=== PATIENT | female | born 1945 | race Caucasian/White ===

== ENCOUNTER 2016-07-18 10:45 | Inpatient (IN) | payer MEDICARE ==
[2016-07-18] VITALS (13 sets, daily range): BP systolic 119–159; BP diastolic 57–123; PULSE 64–78; RESP 10–22; O2SAT 99–100
[~2016-07-18] VITALS: Ht 167.6 cm; Wt 77.6 kg
--- NOTE | 2016-07-18 10:39 | ED.REPORT ---
HPI-Overdose/Alcohol Toxicity Date of Service July 18, 2016 ED Provider: Saulo Guillen MD Patient is a 71 year old female with a history of sleep apnea, migraines and GERD who presents to the ED via EMS due to an overdose. Per the EMS, the patient 's family reported she was making suicidal comments last night and had started taking more of her sleeping medication. The patient had a prescription for a total of 68 Temazepam but EMS is unsure what she actually took. Per EMS, the patient's family watched her collapse about 20-50 minutes ago. Nursing Notes Stated Complaint: OVERDOSE Nursing Notes Reviewed: Yes (Effcon MXR not reconciled) Allergies: Coded Allergies: lisinopril (Verified Adverse Reaction, Severe, Extrapyramidal Symptoms, ) per pt sertraline (Verified Adverse Reaction, Severe, Diarrhea, 12/05/14) per pt Scheduled ([hytrin]) 20 MG PO DAILYWD Allopurinol (Allopurinol) 300 Mg Tablet 300 MG PO DAILY Amlodipine (Amlodipine) 5 Mg Tablet 5 MG PO DAILY Atorvastatin (Lipitor) 20 Mg Tablet 20 MG PO DAILY Fluoxetine (Prozac) 20 Mg Capsule 20 MG PO DAILY Glipizide (Glipizide) 5 Mg Tablet 5 MG PO BIDWM Lisinopril (Lisinopril) 20 Mg Tablet 20 MG PO DAILY Hold for systolic less than 110 Metformin ER (Metformin ER) 1,000 Mg Tablet 1,000 MG PO BIDWM Omeprazole (Omeprazole) 20 Mg Tablet.dr 20 MG PO BID Scheduled PRN Cyclobenzaprine (Cyclobenzaprine) 10 Mg Tablet 10 MG PO TID PRN PRN Spasm Hydrocodone-Acetaminophen 5-325 mg (Hydrocodone-Acetaminophen 5-325 mg) 1 Each Tablet 1 TABLET PO Q4H PRN PRN For Pain Methocarbamol (Methocarbamol) 500 Mg Tablet 750 MG PO QID PRN PRN For Spasm Mirtazapine (Mirtazapine) 15 Mg Tablet 15 MG PO HS PRN PRN Insomnia Temazepam (Temazepam) 30 Mg Cap 30 MG PO HS PRN PRN Insomnia Trazodone (Trazodone) 100 Mg Tablet 100 MG PO HS PRN PRN Insomnia General Time Seen by Provider: 10:45 Chief Complaint Drug overdose Modifying Factors: Intentional Hx Obtained From: EMS Arrived By: Ambulance Onset Occurred: Just prior to arrival Symptom Duration: Since onset Recent Healthcare: No recent hospitalization, Recent doctor visit Similar Sx Previous: No Past Medical History Past Medical History Notes: Last admitted November 2014 for abdominal pain Past Medical History From EMR: h/o Sleep apnea. h/o GERD. h/o migraines History of gout History of hiatal hernia History of chronic colitis Reports: Diabetes mellitus, Hyperlipidemia, Hypertension Past Surgical History L4-L5 fusion colonoscopy October 2014 revealed tubular adenoma, non-malignancy Family History Father - Enlarged heart. Brother - Brain aneurysm. Reports: Diabetes mellitus Smoking History Former Smoker Social History Alcohol Use: "Social" Drug Use: THC (UR indicates smokes marijuana daily) Ambulatory Status Independent Review of Systems Unable to Obtain ROS Intubated Physical Exam Initial Vital Signs Vital Signs (First) Date Time Temp Pulse Resp B/P Pulse Ox O2 Delivery O2 Flow Rate FiO2 07/18/16 10:49 64 22 138/123 100 Mechanical Ventilator 07/18/16 11:05 35.5 Initial VS: Reviewed Alertness: Positive: Sedated, Unresponsive no apparent toxidromes Respiratory / Chest: Atraumatic, No respiratory distress Cardiovascular: Heart rate NL, Regular rhythm, Heart sounds NL Heart Rate / Rhythm: Negative: Tachycardia Abdomen: Atraumatic, Soft, Non-tender Mental Status: Positive: Pharmacologically sedated occasional spot movement of all 4 extremities with no focal deficit Unable to Evaluate: Positive: Unresponsive Head / Eyes: Atraumatic, Normocephalic, PERRL, EOMI pupils were small but reactive bilaterally Skin: Atraumatic, Color NL, No rash, Warm, Dry Interpretation & Diagnostics Lab Results Interpretation Result Diagram: 07/18/16 1040 07/18/16 1040 Test 07/18/16 10:40 07/18/16 11:18 White Blood Count 8.7th/mm3 (3.8-10.1) Red Blood Count 4.42mil/mm3 (3.90-5.20) Hemoglobin 12.1g/dL (12.0-15.6) Hematocrit 37.2% (35.0-46.0) Mean Corpuscular Volume 84.2fL (81-100) Mean Corpuscular Hemoglobin 27.4pg (27.0-35.0) Mean Corpuscular Hemoglobin Concent 32.5% (32.0-37.0) Red Cell Distribution Width 14.6% (12.3-15.4) Platelet Count 334bil/L (150-400) Prothrombin Time 10.0sec (8.1-12.5) Prothromb Time International Ratio 0.94ratio Sodium Level 138mEq/L (134-144) Potassium Level 4.1mEq/L (3.5-5.2) Chloride Level 103mEq/L (97-108) Carbon Dioxide Level 22mmol/L (18-29) Blood Urea Nitrogen 22mg/dL (8-27) Creatinine 0.92mg/dL (0.57-1.00) Estimat Glomerular Filtration Rate 86mL/min (>59) Glucose Level 142mg/dL (60-99) Calcium Level 9.6mg/dL (8.5-10.1) Total Bilirubin 0.2mg/dL (0.0-1.2) Aspartate Amino Transf (AST/SGOT) 22U/L (0-50) Alanine Aminotransferase (ALT/SGPT) 16U/L (0-32) Alkaline Phosphatase 82U/L (25-165) Total Protein 6.8g/dL (6.4-8.4) Albumin 3.7g/dL (3.4-5.0) Salicylates Level < 3.0ug/mL (30-250) Acetaminophen Level < 15.0ug/mL Rx (10-25) Alcohols < 10mg/dL (0-10) Hold Urine Received (Received) Lab Results Interpretation: CBC normal CMP normal Tylenol negative Salicylates negative Alcohol negative UA positive for signs of infection Urine tox positive for benzos and THC ECG Interpretation ECG Interpretation: left anterior fasicular block, unchanged from previous EKG Q waves anterior, unchanged from 2014 Time: 11:04 Interpreted by: ED physician Normal ECG Interpretation: Normal rate (69), Normal sinus rhythm X-Ray Chest Interpretation Chest Xray Interpretation: IMPRESSION: ET tube with tip 3.6 cm the handy. Minimal right perihilar and left suprahilar pulmonary opacities most consistent with atelectasis, scarring or overlap of vascular structures. Dictated by: Lebron Stubbs M.D. on 07/18/2016 at 10:57 Approved by: Lebron Stubbs M.D. on 07/18/2016 at 10:59 View: Portable, 1 view Interpretation / Wet Read by: Interpret - Radiologist Re-Eval/Medical Decision Med Decision/Clinical Course This is a 71-year-old female brought with a complaint of intentional overdose, possibly on temazepam-although it is not entirely certain what the patient took. All history is from EMS-family and friends did not show up on the patient was in the emergency department. EMS reports that there were called to the scene for a witnessed overdose. That family and friends mention that she been talking about killing herself for the past several days, that she took pills this morning, and then she had a declining mental status and was witnessed to become decreased LOC at which point they called 911. On arrival of medics the patient was altered enough and had a decreased responsive they were concerned about airway detection and intubated her without difficulty on scene. This was after the patient failed to respond to Narcan, and had a normal Accu-Chek. The patient was normotensive, and had no tachycardia, and remained stable during her subsequent transfer. The patient's medicine bottles were collected-there is a recent bottle of 30 x15 mg temazepam that was just filled but is now empty raising concerns that this was the source of the overdose. There is a second bottle temazepam next empty, but is older and he might of been taken as directed-we simply do not know. There are number other medications most high risk of which would be amlodipine, but the patient had no bradycardia, no hypertension, and the pills not appear to be missing. The bottom line is we do not know for certain exactly what the patient is taken. She does not have a definitive toxidrome. His altered but still has a reasonable respiratory rate in fact is overbreathing the ventilator which would also be unusual. Her arterial blood gas in fact reveals mild hypercapnia suggestively inadequate ventilation rate is adequate, so her tidal volume was increased. Otherwise her blood work was normal. Chest x-rays negative. Urine tox positive only for benzos and THC. Tylenol, salicylates were normal. Patient started to wake up a little bit to move around, was not interactive and did require some mild low dose propofol sedation. The case was reviewed with poison control agrees with supportive management at this time. Although EMS reports and the patient overdosed and the events occurred in front of family and friends, at this point the patient being moved to the ICU no one has showed up at the Hospital provide additional information or information. CERTIFIED NURSE PRACTITIONER consultation is been requested. This is been discussed with the admitting hospitalist. Source of Hx: Old records, EMS Consultation #1: Referral / Consult Name: Brant Joseph MD Consulted With: Hospitalist Call Returned at: 11:25 Range Manager: Agrees with eval, Agrees with plan, Accepts admit Consultation #2: Call Returned at: 12:10 Range Manager: Agrees with eval, Agrees with plan Note: Consult with Poison Control who agrees to the plan and recommends testing her lactic acid. Differential Diagnosis: Positive: Overdose, intentional, Suicidal attempt Counseled Regarding: Diagnosis, Lab results, Need for admission Discharge & Departure Impression: Primary Impression: Overdose Encounter type: initial encounter Injury intent: intentional self-harm Qualified Code: T50.902A - Poisoning by unspecified drugs, medicaments and biological substances, intentional self-harm, initial encounter Additional Impressions: Suicide attempt Urinary tract infection Urinary tract infection type: acute cystitis Hematuria presence: without hematuria Qualified Code: N30.00 - Acute cystitis without hematuria Disposition: ADMITTED TO HOSPITAL Discharge Condition All VS Reviewed: Yes Condition: Stable Referrals: Ivon Gonsalves MD (PCP) Crit Care Except Billable Proc Time Spent: 30-74 minutes Services Performed: Patient management by me, Time spent at bedside, Reviewing test results, Reviewing imaging, Discussing patient care, Documentation in record Scribe Attestation Portions of this note were transcribed by Britney Dunn. I, Dr. Guillen personally performed the history, physical exam and medical decision-making; I reviewed and confirmed the accuracy of the information in the transcribed note. Signed by: Elieser Reid, 07/18/16 and 1225 copies to: Ivon Gonsalves MD, Matthew F MD July 18, 2016 10:39 Dotty Dunn July 18, 2016 10:58
[~2016-07-18 10:45] MED LIST: ALLO300T2 PO; AMLO5TAB2 PO; GLPZ5T PO; HYDR-4003 PO; METF-496 PO; OMEP20TA86 PO; PROZ20 PO; ROB500 PO; hytrin PO
[2016-07-18 10:53] LABS: Mean Corpuscular Hemoglobin 27.4 pg (27.0-35.0); Mean Corpuscular Volume 84.2 fL (81-100)
--- NOTE | 2016-07-18 11:01 | DRSVH ---
PROCEDURE: X-RAY CHEST ONE VIEW, PORTABLE ([id number]) INDICATIONS: check tube placement TECHNIQUE: One view of the chest was acquired. COMPARISON: None. FINDINGS: Surgical changes and devices: ET tube with tip 3.6 CM above the handy. Lungs and pleura: No pleural effusions or pneumothorax. Minimal left suprahilar and right perihilar pulmonary opacities. Oral Mediastinum: Mediastinal contours appear normal. Heart size is normal. Bones and chest wall: No suspicious bony lesions. Overlying soft tissues appear unremarkable. IMPRESSION: ET tube with tip 3.6 cm the handy. Minimal right perihilar and left suprahilar pulmonary opacities most consistent with atelectasis, scarring or overlap of vascular structures. Dictated by: Lebron Stubbs M.D. on 07/18/2016 at 10:57 Approved by: Lebron Stubbs M.D. on 07/18/2016 at 10:59
[2016-07-18 11:11] LABS: INR 0.94 ratio
--- NOTE | 2016-07-18 11:16 | ABG ---
DateTimeAnalyzed 11:08:35 -_ pH ____7.279 - 7.350 7.450 pCO2 ___51.1__ -mmHg 35.0 45.0 pO2 411 -mmHg 70.0 100 HCO3- ___23.9__ -mmol/L 22.0 26.0 ABE ___-2.8__ -mmol/L -2.0 2.0 tHb ___11.7__ -g/dL 12.0 18.0 O2Hb ___99.3__ -% 95.0 COHb ____1.4__ -% 1.5 MetHb ____0.2__ -% 0.4 1.5 FIO2 __100.0__ -% PEEP ____5.0__ -cmH2O Set_RR 16 -b/min Vt __440.0__ -L Drawn By btl - Date/Time Notified____ 11:16:00 -_ Spontaneous_RR 24 -b/min Oxygen Device 1 VENTILATOR - Notified By BTl - Notified Whom ___Dr. Wilmer - K+ ____4.0__ -mmol/L Tomi test N/A -
[2016-07-18] MEDS: Propofol Inj 1,000,000 MCG in IV Premix 1 EACH IV SCH ×2 (11:20→21:41)
[2016-07-18] MEDS ORDERED: AMLO5TAB2 PO (11:39)
[2016-07-18] MEDS ORDERED: TRAZ-118 PO (11:39)
[2016-07-18] MEDS ORDERED: MIRT15TA6 PO (11:39)
[2016-07-18] MEDS ORDERED: LISI-567 PO (11:39)
[2016-07-18] MEDS ORDERED: RES30 PO (11:39)
[2016-07-18] MEDS ORDERED: ATOR20TA PO (11:39)
[2016-07-18] MEDS ORDERED: CYCL10TA9 PO (11:39)
[2016-07-18 12:32] LABS: APPEARANCE,URINE CLOUDY (CLEAR,HAZY); COLOR,URINE YELLOW (YELLOW)
[2016-07-18 12:33] LABS: OCCULT BLOOD,URINE NEGATIVE (NEGATIVE); UROBILINOGEN,URINE NORMAL (NORMAL); YEAST,URINE MODERATE (NONE SEEN)
[2016-07-18] MEDS ORDERED: Ondansetron 2 mg/mL 2 mL Inj IVPUSH PRN ×2 (12:35→13:55)
[2016-07-18] MEDS ORDERED: Alum-Mag Hydrox-Simeth 30 mL Suspension PO PRN ×2 (12:35→13:55)
--- NOTE | 2016-07-18 12:38 | ABG ---
DateTimeAnalyzed 12:32:26 -_ pH ____7.487 - 7.350 7.450 pCO2 ___27.0__ -mmHg 35.0 45.0 pO2 ___79.8__ -mmHg 70.0 100 HCO3- ___20.4__ -mmol/L 22.0 26.0 ABE ___-2.6__ -mmol/L -2.0 2.0 tHb ___11.2__ -g/dL 12.0 18.0 O2Hb ___96.7__ -% 95.0 COHb ____1.8__ -% 1.5 MetHb ____0.0__ -% 0.4 1.5 sO2 ___98.4__ -% FIO2 ___21.0__ -% Drawn By btl - Date/Time Notified____ 12:38:00 -_ Notified By btl - Notified Whom ___Dr. Wilmer - K+ ____3.7__ -mmol/L tO2 ___15.2__ -Vol% Tomi test N/A -
[2016-07-18] MEDS ORDERED: 0.9% Sodium Chloride 1,000 ML IV ONE (12:40)
[2016-07-18] MEDS ORDERED: cefTRIAXone Inj 2,000 MG in Dextrose 5% Minibag Plus 50 ML IV ONE (13:10)
[2016-07-18] MEDS ORDERED: Polyethylene Glycol (PEG) 17 Gm Powder PO PRN (13:55)
[2016-07-18] MEDS ORDERED: Senna-Docusate 8.6-50 mg Tablet PO PRN (13:55)
--- NOTE | 2016-07-18 14:11 | NUR ---
Med Rec - pending brought a bag of medications (in bottles) to room. Some of the med bottles are empty, some are years ago, some are dispensed in recent months in 2017. said he had little knowledge of his medications and management. Fax request for med list from [facility] was sent. Addendum: 07/18/16 at 1422 by MONE RANGEL RN Returned med bottles to after med info was written on paper. took meds home. Addendum: 07/18/16 at 1833 by MONE RANGEL RN brought a list of her medications from home. Med list was dated May 13, 2016, [facility] [employer]. That's is the most recent med list to the best of 's knowledge. They were a few sedative medications (temazepam, trazodone, Mirtazapine) in the medication bag from home. Dr. Nelson aware of the above information.
[2016-07-18] MEDS: 0.9% Sodium Chloride 1,000 ML IV SCH ×2 (14:22→23:30)
--- NOTE | 2016-07-18 14:26 | DRSVH ---
PROCEDURE: X-RAY CHEST ONE VIEW, PORTABLE ([id number]) INDICATIONS: Post intubation to verify ETT placement TECHNIQUE: One view of the chest was acquired. COMPARISON: [facility], CR, XR CHEST 1VW (PORTABLE), 07/18/2016, 10:36. FINDINGS: Surgical changes and devices: Enteric tube with tip below the diaphragm. ET tube with tip 3 CM above the handy. Lungs and pleura: No pleural effusions or pneumothorax. Stable left suprahilar and right infrahilar pulmonary opacities. Mediastinum: Mediastinal contours appear normal. Heart size is normal. Bones and chest wall: No suspicious bony lesions. Overlying soft tissues appear unremarkable. IMPRESSION: New enteric tube with tip below the diaphragm. Stable ET tube. Remainder unchanged. Dictated by: Lebron Stubbs M.D. on 07/18/2016 at 14:24 Approved by: Lebron Stubbs M.D. on 07/18/2016 at 14:25
[2016-07-18] MEDS ORDERED: INSU100I13 SUBQ (15:09)
--- NOTE | 2016-07-18 15:26 | PCM.HPMED ---
Subjective Date of Service July 18, 2016 Primary Provider: Admitting Physician: Tomi Joseph MD Primary Care Physician: Ivon Gonsalves MD Attending Physician: Tomi Joseph MD Admit Status: From the Emergency Department, Full Admit, Critical Care Chief Complaint: Possible overdose. Patient is intubated in field for airway protection and altered mental status. History of Present Illness: This is a patient who was intubated in the field. She was seen by medics because of acute mental status changes. There was some inflammation suggesting a possible benzodiazepine overdose but this is not confirmed. The patient's notes that she has been suicidal recently and also states he did not speak with her this morning. Apparently she was up at breakfast and became acutely confused. Family members called 911. At that time the details are unclear she was already intubated while being transported to the emergency department. There she apparently was progression to some degree and was started on propofol. The patient was noted to have pinpoint pupils and was given 2 doses of Maalox on without effect. Brain imaging was not obtained. The patient's urine toxicity was positive for benzodiazepines and THC. She can provide no history as she is intubated. Her was interviewed and notes that he did not think she has used any marijuana for several months. He also notes that she does not drink. He notes that she is never made a clear-cut suicide attempt in the past. He also notes that he does not believe that she would want invasive procedures, mechanical ventilation, or CPR or defibrillation if she had an arrest. Review of Systems: Review systems is otherwise not obtainable due to her being intubated and her 's lack of specific details. Allergies Coded Allergies: lisinopril (Verified Adverse Reaction, Severe, Extrapyramidal Symptoms, ) per pt sertraline (Verified Adverse Reaction, Severe, Diarrhea, 12/05/14) per pt Home Medications ([hytrin]) 20 MG PO DAILYWD Allopurinol (Allopurinol) 300 Mg Tablet 300 MG PO DAILY Amlodipine (Amlodipine) 5 Mg Tablet 5 MG PO DAILY Atorvastatin (Lipitor) 20 Mg Tablet 20 MG PO DAILY Fluoxetine (Prozac) 20 Mg Capsule 20 MG PO DAILY Glipizide (Glipizide) 5 Mg Tablet 5 MG PO BIDWM Lisinopril (Lisinopril) 20 Mg Tablet 20 MG PO DAILY Hold for systolic less than 110 Metformin ER (Metformin ER) 1,000 Mg Tablet 1,000 MG PO BIDWM Omeprazole (Omeprazole) 20 Mg Tablet.dr 20 MG PO BID Scheduled PRN Cyclobenzaprine (Cyclobenzaprine) 10 Mg Tablet 10 MG PO TID PRN PRN Spasm Hydrocodone-Acetaminophen 5-325 mg (Hydrocodone-Acetaminophen 5-325 mg) 1 Each Tablet 1 TABLET PO Q4H PRN PRN For Pain Methocarbamol (Methocarbamol) 500 Mg Tablet 750 MG PO QID PRN PRN For Spasm Mirtazapine (Mirtazapine) 15 Mg Tablet 15 MG PO HS PRN PRN Insomnia Temazepam (Temazepam) 30 Mg Cap 30 MG PO HS PRN PRN Insomnia Trazodone (Trazodone) 100 Mg Tablet 100 MG PO HS PRN PRN Insomnia PMH Diabetes mellitus 2 GERD COSTA Migraine headaches Hyperlipidemia Essential hypertension Surgical History L4-L5 fusion Family History Positive family history of diabetes, one brother with a brain aneurysm. Social History Occupation: non- Hx Alcohol Use: No Hx Substance Use: Yes (takes medications to sleep) Hx Tobacco Use: Yes Smoking Status: Former Smoker Living Arrangement: with Family Exam Vital Signs Vital Sign - Last Date Time Temp Pulse Resp B/P Pulse Ox O2 Delivery O2 Flow Rate FiO2 07/18/16 14:37 36.4 68 10 144/68 100 Mechanical Ventilator 28 Exam Patient is intubated and unresponsive. Her propofol was weaned at the time of transfer up to the floor. She has pinpoint pupils and conjugate gaze. No response to noxious stimuli. She was not given paralytics. Normal skull. Normal nose and ears. Anicteric sclera, symmetric pupils, pinpoint Oropharynx is unremarkable, no facial droop. Neck is supple, normal thyroid. No adenopathy. Lungs are clear, normal effort rate. She is being mechanically ventilated. Heart is regular without murmur gallop or rub. Abdomen soft, nondistended or tender. Extremities are free of pedal edema. Good radial and pedal pulses. Skin is free of rash, lesions. No petechiae or ecchymosis. Joints are grossly normal. Cranial nerves are grossly normal. Otherwise. Motor strength flaccid in all extremities. Poor muscular tone. Lab and Diagnostics Result Diagram: 07/18/16 1040 5/28/17 1040 X-Rays, CTs and MRIs Chest x-ray is unremarkable, the ET tube is about 3 cm above the handy. Assessment & Plan 1. Acute encephalopathy, lung cardiology. POA. The patient will have her propofol weaned. She is currently being mechanically ventilated will follow her spontaneous respirations closely. We will obtain a stat head CT to rule out evidence of intracranial hemorrhage. 2. Possible overdose of benzodiazepines, unconfirmed. POA. We will support her airway and respirations of mechanical ventilation. If she clears after head CT with weaning and propofol will do a breathing trial and plan to extubate. 3 Is mellitus 2, POA. Correctional lispro with every 6 Accu-Cheks 4. Essential hypertension, POA. We will use labetalol when necessary systolic blood pressure 170 for now. 5. GI and DVT prophylaxis. Heparin will be withheld until after CT scan results are available. Will use mechanical compression devices. The patient is DO NOT RESUSCITATE, DO NOT INTUBATE after this extubation. No invasive procedures. She was admitted inpatient status with anticipated stay over 2 nights. VTE Mechanical Devices: Intermittant Pneumatic CD Resuscitation Status: DNR/DNI:Do Not Resuscitate/Intubate Time spent 60 min Tomi Joseph MD July 18, 2016 15:25
[2016-07-18] MEDS ORDERED: Dextrose 10% 250 ML IV PRN (15:30)
--- NOTE | 2016-07-18 15:51 | ABG ---
DateTimeAnalyzed 15:44:25 -_ pH ____7.368 - 7.350 7.450 pCO2 ___40.5__ -mmHg 35.0 45.0 pO2 ___84.0__ -mmHg 70.0 100 HCO3- ___23.3__ -mmol/L 22.0 26.0 ABE ___-1.8__ -mmol/L -2.0 2.0 tHb ___11.4__ -g/dL 12.0 18.0 O2Hb ___95.7__ -% 95.0 COHb ____1.6__ -% 1.5 MetHb ____0.1__ -% 0.4 1.5 sO2 ___97.3__ -% FIO2 ___28.0__ -% PRVC 440 - PEEP ____5.0__ -cmH2O Set_RR 10 -b/min Vt __461.0__ -L Drawn By jmw - Date/Time Notified____ 15:51:00 -_ Spontaneous_RR 11 -b/min Oxygen Device 1 VENTILATOR - Notified By JMW - Notified Whom DR NOEMI - K+ ____3.5__ -mmol/L tO2 ___15.4__ -Vol% Tomi test _Positive -
--- NOTE | 2016-07-18 16:05 | DRSVH ---
PROCEDURE: CT BRAIN WITHOUT CONTRAST ([id number]) INDICATIONS: confusion TECHNIQUE: Noncontrast 4.5 mm thick angled axial sections acquired from the foramen magnum to the vertex, with c oronal reformats. COMPARISON: None. FINDINGS: Image quality: Excellent. CSF spaces: Basal cisterns are patent. No extra-axial fluid collections. Ventricles are normal in size and shape. Brain: No midline shift. No intracranial masses or hemorrhage. Hernandez-white matter interface is norm al. Skull and face: Calvarium and visualized facial bones are intact, without suspicious lesions. Sinuses: Visualized sinuses and mastoids are clear. IMPRESSION: No CT evidence of acute intracranial pathology. Dictated by: Lebron Stubbs M.D. on 07/18/2016 at 16:01 Approved by: Lebron Stubbs M.D. on 07/18/2016 at 16:03
[2016-07-18] MEDS ORDERED: Chlorhexidine 0.12% 15 mL Oral Solution MT SCH (16:30)
[2016-07-18] MEDS ORDERED: Glucose 40% Oral Gel 15 Gm Tube PO PRN ×2 (16:35→16:45)
--- NOTE | 2016-07-18 16:49 | CONS ---
[address] [address] CONSULTATION REPORT PATIENT: ALETHEA GOOD : 1945 MR#: [id number] ADMIT: 07/18/2016 JOB ID: [id number] DATE OF SERVICE: 07/18/2016 REQUESTING CLINICIAN: Hospitalist Service. REASON FOR CONSULTATION: Acute respiratory failure in the setting of coma/encephalopathy. HISTORY OF ILLNESS: The patient is a chronically ill, 71-year-old woman with a history of anxiety, depression, who recently expressed suicidal ideation. She was last seen normal by family members approximately 10 p.m. yesterday evening. This morning, she was difficult to arouse with only slurred speech and mumbling. Paramedics were called. The patient was placed in the ambulance and at some point during transport to [facility] emergency department was intubated for reasons which are not entirely clear at this time. She was admitted from the emergency department to the critical care unit receiving propofol by continuous infusion. I was asked to become involved in her care upon her arrival in critical care. The patient's is at her bedside. He reports that she has been "under a lot of stress lately." Apparently, there is quite a bit of discord and conflict within the family involving substance abuse. The patient went for dinner with some family members late yesterday evening and when returned home appeared anxious and agitated. The says that she has access to sleeping pills and has been sleeping very poorly for the last several days and may have taken more than the prescribed amount. Upon arrival at the [facility] emergency department, she was treated with several doses of Naloxone without any improvement in her alertness. Urine drug screen positive for benzodiazepines and THC. Alcohol, acetaminophen, and salicylates undetectable. OUTPATIENT MEDICATIONS: Include: 1. Metformin 1000 mg p.o. b.i.d. 2. Allopurinol 300 mg daily. 3. Amlodipine 5 mg daily. 4. Atorvastatin 20 mg at bedtime. 5. Fluoxetine 20 mg daily. 6. Glipizide 5 mg b.i.d. 7. Insulin glargine 30 units subcu q.a.m. 8. Lisinopril 20 mg daily. 9. Methocarbamol 500 mg q.i.d. p.r.n. 10. Mirtazapine 15 mg at bedtime. 11. Omeprazole 20 mg b.i.d. 12. Temazepam 30 mg at bedtime. 13. Trazodone 100 mg p.r.n. insomnia. DRUG ALLERGIES: 1. LISINOPRIL. 2. SERTRALINE. SOCIAL HISTORY: She is , retired. She does not smoke marijuana regularly but has done so in the past. She reportedly does not use street drugs. She is an infrequent alcohol user. FAMILY HISTORY: Father, enlarged heart. Brother, brain aneurysm. REVIEW OF SYSTEMS: Unable to obtain as patient is intubated and unresponsive. PHYSICAL EXAMINATION: This is a pale, obese, elderly woman, who appears appropriate for age. She is unresponsive to loud voice and noxious stimuli with sternal rub. She is orotracheally intubated. Blood pressure is 150/70, heart rate is 68 and regular, respirations are 14 over ventilator rate of 14, and her O2 saturation is 100%. She is and has been afebrile with a current temperature of 36.4. HEENT exam: Gaze appears conjugate. Conjunctivae free of injection or hemorrhage. Pupils are equal at 2 mm. She has reptilian stare with head turning. No oculocephalic reflex noted. Sclerae anicteric. Visible oropharynx is moist without ulcerations or exudate. The trachea is midline. Neck is free of adenopathy, mass or crepitus. Thyroid is not palpable. Chest shows symmetric expansion on auscultation. He has good air movement in all crowder without wheeze, rale or rhonchi. Cardiac exam: Regular rhythm. No murmur, gallop, rub. Abdomen is soft and nontender. Bowel tones are absent. There is no appreciable organomegaly. Extremities: Are warm. She has 1+ pulse, both wrists. Trace dorsalis pedis bilaterally. Trace edema both ankles. She has an antecubital peripheral line in her right AC. Neurologic: Generally decreased tone throughout. No response to voice or noxious stimuli. No tremor. No clonus. Hyporeflexic throughout. DATABASE: Per the electronic medical record, chemistry showed sodium 138, potassium 4.1, chloride is 103, total CO2 is 22. BUN is 22, creatinine 0.9. Random glucose 142. Total calcium 9.6. CBC shows a hemoglobin of 12.2, hematocrit 37, WBC 8.7, and 334,000 platelets. PT/INR is normal at 10/0.9. Urine was cloudy with moderate leukocyte esterase, greater than 50 WBC and visible bacteria. Initial chest x-ray shows an endotracheal tube tip which lies approximately 3.5 cm above the hadny. She has patchy airspace disease in the right paratracheal region. IMPRESSION: 1. Acute respiratory failure. The indication for intubation appears to have been altered mental status to the degree that people were concerned about her ability to protect her airway. Right now she does have adequate spontaneous respiration on a pressure support spontaneous mode. She is already exhibiting some signs of awakening with purposeful movements of both upper extremities. Noncontrast head CT has been ordered and I think once this is completed hopefully she can remain on spontaneous ventilation and be extubated later today or early tomorrow. There may have been slight aspiration given the minimal patchy airspace disease but her oxygenation is fine on a relatively minimal FiO2 and I am not particularly concerned about a true pneumonia at this point. Endotracheal aspirate can be submitted for culture and antibiotics directed at any organisms grown. Can be added later based on how she evolves. 2. Urinary tract infection. Empiric antibiotics already prescribed by her admitting team. 3. Diabetes. Random glucose currently adequate. Hemoglobin A1c can be checked and her glucose managed with basal and sliding scale insulin until she is extubated and taking a diet. 4. ICU prophylaxis. She can receive subcutaneous unfractionated heparin and GI protection with either H2 paulette or proton pump inhibitor. 5. Coma. Suggests that this is a toxic encephalopathy most likely. Because of the bilateral pinpoint pupils I think we also need to exclude a pontine hemorrhage. If the noncontrast head CT is unremarkable and she remains comatose, an MRI should be obtained sometime tomorrow. RECOMMEND: 1. Spontaneous breathing trial off sedation once patient returns to critical care following noncontrast head CT. 2. Consider MR brain stem imaging if she remains comatose tomorrow and CT is nondiagnostic. 3. Routine ICU prophylaxis. 4. Diabetes management per primary team with basal and sliding scale insulin. 5. Psychiatry/mental health screening and referral prior to discharge given the likelihood that this admission may represent a suicide attempt. Thank for requesting pulmonary critical care consultation. We will continue to follow with you while she remains critically ill.
[2016-07-18] MEDS ORDERED: Insulin LISPRO 300 Unit/3 mL Inj SUBQ SCH (17:30)
[2016-07-18] MEDS: Insulin Human REGular 300 Unit/3 mL Inj SUBQ SCH ×2 (17:30→22:00)
--- NOTE | 2016-07-18 17:42 | NUR ---
P: Alteration in mental status. I: Ct of head done and was essentially negative. Pt opens her eyes slightly and is restless but doesn't follow commands. Placed on PST and was apneic so placed back on PRVC. Propofol off per Dr. Nelson which has been at the bedside to assess pt's neuro and respiratory status. NS 125cc/hr. 2 peripheral antecubital sites. OGT LCS and draining minimal green fluid. Moore patent and draining light fransisca urine. Turned Q 2 hours. here at bedside and talked with and about pt's condition and plan of care. Medication rec is pending results back from pharmacy. E: Stable S: Restraints on for pt safety. Frequent rounding. Addendum: 07/18/16 at 1835 by MONE RANGEL RN Lisinopril allergy? Pt. is allergic to Lisinopril according to 2015 [facility] record. Somehow, she is on Lisinopril according to 2017 [facility] list.
[2016-07-18] MEDS: Heparin 5,000 Unit/mL Inj SUBQ SCH ×2 (17:57→23:33)
[2016-07-18] MEDS: Chlorhexidine 0.12% 15 mL Oral Solution MT SCH ×3 (17:57→23:31)
[2016-07-18] MEDS ORDERED: MELA3TAB46 PO (18:19)
[2016-07-18] MEDS ORDERED: MESA1.2T2 PO (18:23)
[2016-07-18] MEDS ORDERED: ALBU8.5H2 INHALATION (18:23)
[2016-07-18] MEDS ORDERED: Insulin GLARgine 100 Unit/mL Syringe SUBQ SCH (20:30)
[2016-07-18] MEDS: Famotidine Inj 20 MG in IV Premix 1 EACH IV SCH (20:36)
[2016-07-18] MEDS: Insulin GLARgine 100 Unit/mL Syringe SUBQ SCH (20:38)
[2016-07-19] VITALS (13 sets, daily range): BP systolic 129–168; BP diastolic 53–76; PULSE 68–84; RESP 11–29; O2SAT 97–100
[2016-07-19] MEDS: Propofol Inj 1,000,000 MCG in IV Premix 1 EACH IV SCH ×2 (03:35→23:07)
[2016-07-19] MEDS: Chlorhexidine 0.12% 15 mL Oral Solution MT SCH ×5 (04:03→21:03)
--- NOTE | 2016-07-19 05:25 | NUR ---
P) LOC Pt. does not open eyes or seem to track, does pull against restraints but does not follow any commands, Phlegm suctioned from ET tube was initially clear to white, has become more yellow with tiny brown spots. Breath sounds slightly coarse but no crackles or rales note, seldom over-breaths vent. Skin protocol initiated. I) Meds per 's order, turning q2h and floating heels. E) Currently resting quietly with eyes closed.
--- NOTE | 2016-07-19 06:02 | ABG ---
DateTimeAnalyzed 05:56:00 -_ pH ____7.357 - 7.350 7.450 pCO2 ___40.4__ -mmHg 35.0 45.0 pO2 ___85.9__ -mmHg 69.0 116 HCO3- ___22.1__ -mmol/L 22.0 26.0 ABE ___-2.6__ -mmol/L -2.0 2.0 tHb ___10.7__ -g/dL O2Hb ___94.8__ -% COHb ____0.9__ -% MetHb ____1.3__ -% sO2 ___96.9__ -% FIO2 ___28.0__ -% PRVC 10 - PEEP ____5.0__ -cmH2O Vt __440.0__ -L Drawn By blf - Date/Time Notified____ 06:01:00 -_ Spontaneous_RR ___10.0__ -b/min Oxygen Device 1 VENTILATOR - Notified By blf - Notified Whom Nanda Samir RN -__ B 759 -mmHg tO2 ___14.4__ -Vol% Tomi test _Positive -
[2016-07-19 06:52] LABS: BASOPHILS % (AUTO) 0.4 % (0-3); EOSINOPHILS % (AUTO) 2.2 % (0-5); MONOCYTES % (AUTO) 9.1 % (4-12); Mean Corpuscular Hemoglobin 27.4 pg (27.0-35.0); Mean Corpuscular Volume 84.6 fL (81-100); NEUTROPHILS % (AUTO) 71.4 % (40-74); Platelet Count 258 bil/L (150-400)
[2016-07-19 07:00] LABS: Magnesium 1.4 mg/dL (1.6-2.6); Phosphorus 3.9 mg/dL (2.5-4.9)
[2016-07-19] MEDS: Potassium Chloride 20 mEq/15 mL 15mL Oral Soln PO SCH ×2 (07:45→14:17)
[2016-07-19] MEDS: Insulin Human REGular 300 Unit/3 mL Inj SUBQ SCH ×4 (08:00→21:29)
--- NOTE | 2016-07-19 08:36 | PROG NOTE ---
[address] [address] PROGRESS NOTE PATIENT: ALETHEA GOOD : 1945 MR#: [id number] ADMIT: 07/18/2016 JOB ID: [id number] DATE: 07/19/2016 PROBLEM: Apparent intentional overdose, probably temazepam. SUBJECTIVE: None. OBJECTIVE: Temperature 36.8, pulse 68-78, respiratory rate at 10-11 with ventilator set at 10, blood pressure 137/65, O2 sat on FiO2 of 20%, PEEP of 5 is 100%. I and O shows 2.2 L in, 0.9 L out. General appearance: Sedated on ventilator. Currently on a propofol drip so only at 3 mics per kg per hour. Pupils pinpoint. Chest is clear with good breath sounds bilaterally. Heart regular rhythm. Heart tones normal. Abdomen is soft. Bowel tones present. Extremities no pretibial edema. Skin seems intact. LABORATORY DATA: Shows a white cell count of 10,700 with a normal differential. Hemoglobin stable at 11.2. Platelet count 258,000, down from 334,000 yesterday. Sodium 140, potassium 3.6, chloride 107. CO2 is 21. BUN 13, creatinine 0.6. Glucose 110. Lactic acid yesterday afternoon was 1.9. Calcium 8.6 with albumin of 3.1. Phosphorus 3.9, magnesium 1.4 and I believe receiving a magnesium rider as per protocol. Total bilirubin, transaminase, and alkaline phosphatase all normal. Chest x-ray reported to show tubes in good position. There is a left suprahilar and a right infrahilar pulmonary opacity. ASSESSMENT: Presumed temazepam overdose. Apparently was somewhat agitated yesterday. She was initially taken off propofol and placed on a pressure support trial, but she was apneic. Apparently replaced on propofol for agitation though unclear as to the degree or what exactly was going on at that time. Seems fairly sedated to me. I think we will retry taking her off propofol, may be adding fentanyl if he gets somewhat agitated due to the placement of the endotracheal tube. Will try to get her breathing spontaneously and hopefully extubated. Unclear exactly how much temazepam she took although it was apparently a goodly amount. May take us a few days for the medication to wear off. In the meantime, will start tube feeding. Replace electrolytes as needed. Potassium a little bit on the low side and will replace. Magnesium is low. PLAN: 1. Start Jevity 1.5 enteral tube feeding. 2. Consider discontinuing propofol utilizing fentanyl for intolerance of the tube and feeling our way around sedation. 3. Magnesium replacement. 4. Discontinue propofol. TIME SPENT: So far in critical care 40 minutes.
[2016-07-19] MEDS: Heparin 5,000 Unit/mL Inj SUBQ SCH ×2 (09:24→17:21)
[2016-07-19] MEDS: Famotidine Inj 20 MG in IV Premix 1 EACH IV SCH ×2 (09:24→21:06)
[2016-07-19] MEDS: cefTRIAXone Inj 1,000 MG in Dextrose 5% Minibag Plus 50 ML IV SCH (09:24)
[2016-07-19] MEDS: 0.9% Sodium Chloride 1,000 ML IV SCH ×3 (09:25→23:21)
--- NOTE | 2016-07-19 10:53 | PCM.PNMED ---
Subjective Date of Service July 19, 2016 Subjective Patient remains intubated and sedated with no discernible response to external stimuli, per nursing reports she does occasionally pull on restraints. Eyes remain pinpoint and do not track. Patient appears stable on current Vent and sedation protocol. Comprehensive ROS could not be obtained due to patient sedation. Exam Vital Signs Vital Sign - Last Date Time Temp Pulse Resp B/P Pulse Ox O2 Delivery O2 Flow Rate FiO2 07/19/16 08:07 69 141/61 100 28 07/19/16 04:00 36.8 11 Mechanical Ventilator Intake and Output 07/18/16 07/18/16 07/19/16 Cumulative From/Thru 15:00 23:00 07:00 07/18/16 10:49 - 07/19/16 06:15 Intake Total 1000 ml 1249 ml 1799 ml 4048 ml Output Total 950 ml 1175 ml 2125 ml Balance 1000 ml 299 ml 624 ml 1923 ml Intake Oral 1000 ml 1000 ml IV Total 1249 ml 1799 ml 3048 ml Output Urine Total 950 ml 1075 ml 2025 ml Gastric Drainage Total 100 ml 100 ml Exam Gen: Patient intubated and sedated Neck: Supple, non tender, no JVD HEENT: no scleral icterus, no conjunctival pallor, Pinpoint pupils BL, ET tube in place and appears patent CV: RRR, no murmurs rubs or gallops Resp: Lungs CTA BL, no wheezing rales or rhonchi, Ventilator breath sounds Abd: Soft, non tender, no organomegaly, +BS 4Q Extr: No cyanosis clubbing or edema Neuro: Cannot asses as patient is non responsive to external stimuli IVs and Medications IV Fluids NS @ 125 ml/hr 50 ml infused with IV meds Medications Reviewed: Medications were reviewed in detail Lab and Diagnostics Item Value Date Time Red Blood Count 4.09 mil/mm3 07/19/16629 Mean Corpuscular Volume 84.6 fL 07/19/16629 Mean Corpuscular Hemoglobin 27.4 pg 07/19/16629 Mean Corpuscular Hemoglobin Concent 32.4 % 07/19/16629 Red Cell Distribution Width 14.4 % 07/19/16629 Neutrophils (%) (Auto) 71.4 % 07/19/16629 Lymphocytes (%) (Auto) 16.7 % 07/19/16629 Monocytes (%) (Auto) 9.1 % 07/19/16629 Eosinophils (%) (Auto) 2.2 % 07/19/16629 Basophils (%) (Auto) 0.4 % 07/19/16629 Estimat Glomerular Filtration Rate 122 mL/min 07/19/16629 Calcium Level 8.6 mg/dL 07/19/16629 Magnesium Level 1.4 mg/dL L 07/19/16629 Phosphorus Level 3.9 mg/dL 07/19/16629 Total Bilirubin 0.2 mg/dL 07/19/16629 Aspartate Amino Transf (AST/SGOT) 17 U/L 07/19/16629 Alanine Aminotransferase (ALT/SGPT) 11 U/L 07/19/16629 Alkaline Phosphatase 76 U/L 07/19/16629 Total Protein 6.0 g/dL L 07/19/16629 Albumin 3.1 g/dL L 07/19/16629 Prealbumin 21 mg/dL 07/19/16629 Result Diagram: 07/19/1662907/19/16629 X-Rays, CTs and MRIs X-RAY CHEST ONE VIEW, PORTABLE IMPRESSION: New enteric tube with tip below the diaphragm. Stable ET tube. Remainder unchanged. Dictated by: Lebron Stubbs M.D. on 07/18/2016 at 14:24 Approved by: Lebron Stubbs M.D. on 07/18/2016 at 14:25 CT BRAIN WITHOUT CONTRAST IMPRESSION: No CT evidence of acute intracranial pathology. Dictated by: Lebron Stubbs M.D. on 07/18/2016 at 16:01 Approved by: Lebron Stubbs M.D. on 07/18/2016 at 16:03 . Additional Diagnostics pH ____7.357 - 7.350 7.450 pCO2 ___40.4__ -mmHg 35.0 45.0 pO2 ___85.9__ -mmHg 69.0 116 HCO3- ___22.1__ -mmol/L 22.0 26.0 ABE ___-2.6__ -mmol/L -2.0 2.0 . Assessment & Plan Herlinda Cassidy is a 71 year old woman with a PMH of depression with recent expression of suicidal ideation and significantly increased stress in her life recently. Found non-responsive next to several empty pill bottles with likely Benzodiazepine overdose, those exact etiology of AMS uncertain at this point as patient is intubated and sedated and her is a poor historian. 1. Acute encephalopathy, uncertain etiology. POA. Acute. Active -The patient will have her propofol weaned. -She is currently being mechanically ventilated will follow her spontaneous respirations closely. -Head CT negative -Patient found with several empty pill bottles -Tube feeds initiated while patient is intubated 2. Possible overdose of benzodiazepines, unconfirmed. POA. acute. Active -We will support her airway and respirations of mechanical ventilation. -Will withhold Flumazenil due to concern for acute withdrawal and seizure potential -Plan to wean propofol and do a breathing trial with plan to extubate. -Will add back Benzo therapy once patient clears a little more to prevent withdrawal or seizures 3 Diabetes Mellitus 2, POA. chronic. Active -Lantus 5U Qhs -Correctional lispro with every 6 Accu-Cheks -A1c pending 4. Essential hypertension, POA.Chronic. Active -We will use labetalol when necessary for systolic blood pressure > 170 -Patient currently hemodynamically stable, no need for pressors 5. Possible UTI, POA, acute. Active -Uncertain is this is simple pyuria or lana infection as patient cannot answer dysuria questions -Ceftriaxone 2g Q24 for broad coverage -Currently culture negative -Low threshold to DC antibiotics given negative cultures and uncertain symptoms Disposition: Patient remains intubated and sedated, hopefully she will be able to wean off in the near future. She will likely need another few days after extubation to recover strength prior to DC, ideal placement uncertain at this time awaiting return of consciousness and work with PT. Pain Evaluation: Adequate Pain Control GI Prophylaxis: H2 paulette VTE Prophylaxis: Sub-Q Heparin (Unfractionated) VTE Mechanical Devices: Intermittant Pneumatic CD Resuscitation Status: DNR/DNI:Do Not Resuscitate/Intubate Attending Statement The patient was seen and examined together with Dr. Garcia on 07/19/2016 and I agree with the history, exam and plan as outlined in the note above. Reexamination of patient later in the day found her able to open her eyes to command. . Juan Garcia DO July 19, 2016 10:52 Roddy Bowman MD July 19, 2016 16:10
[2016-07-19] MEDS ORDERED: fentaNYL-PF 50 mCg/mL 2 mL Inj IVPUSH PRN (17:00)
[2016-07-19] MEDS ORDERED: Labetalol 5 mg/mL 4 mL Inj IVPUSH ONE (18:20)
[2016-07-19] MEDS: Insulin GLARgine 100 Unit/mL Syringe SUBQ SCH (21:29)
[2016-07-20] VITALS (15 sets, daily range): BP systolic 116–173; BP diastolic 49–72; PULSE 55–69; RESP 10–12; O2SAT 95–99
[2016-07-20] MEDS: Heparin 5,000 Unit/mL Inj SUBQ SCH ×3 (00:37→17:11)
[2016-07-20] MEDS: Chlorhexidine 0.12% 15 mL Oral Solution MT SCH ×6 (00:37→19:55)
[2016-07-20 03:54] LABS: BASOPHILS % (AUTO) 0.3 % (0-3); EOSINOPHILS % (AUTO) 3.4 % (0-5); MONOCYTES % (AUTO) 11.2 % (4-12); Mean Corpuscular Hemoglobin 27.2 pg (27.0-35.0); Mean Corpuscular Volume 84.1 fL (81-100); NEUTROPHILS % (AUTO) 56.2 % (40-74); Platelet Count 268 bil/L (150-400)
[2016-07-20 04:36] LABS: Magnesium 1.4 mg/dL (1.6-2.6)
--- NOTE | 2016-07-20 04:49 | ABG ---
DateTimeAnalyzed 04:45:00 -_ pH ____7.392 - 7.350 7.450 pCO2 ___41.8__ -mmHg 35.0 45.0 pO2 ___87.6__ -mmHg 69.0 116 HCO3- ___24.8__ -mmol/L 22.0 26.0 ABE ____0.4__ -mmol/L -2.0 2.0 tHb ___10.1__ -g/dL O2Hb ___94.9__ -% COHb ____1.1__ -% MetHb ____1.2__ -% sO2 ___97.1__ -% FIO2 ___28.0__ -% PRVC 10 - PEEP ____5.0__ -cmH2O Vt __440.0__ -L Drawn By blf - Date/Time Notified____ 04:49:00 -_ Spontaneous_RR ___10.0__ -b/min Oxygen Device 1 VENTILATOR - Notified By blf - Notified Whom Rossi K[place]e RN -___ B 756 -mmHg tO2 ___13.6__ -Vol% Tomi test _Positive -
[2016-07-20] MEDS: 0.9% Sodium Chloride 1,000 ML IV SCH ×3 (05:51→17:13)
--- NOTE | 2016-07-20 05:58 | NUR ---
P: restless I: propofol at 15mcg, fentanyl 25mg IVP x 1 E: Start of shift eyes minimally open and after asking few times nods no to pain. RASS -2 changing to Rass +1. Restless. BURGESS. Reaching for ETT, swinging leg over EOB. Fentanyl 25mcg IVP x1. Pt now RASS -3. Not nodding head to cueing. BURGESS. Sats in the high 90s. Coughing w/ suctioning. Breathing over vent rate start of shift now rarely overbreathes vent rate. Tele SR w/ IVCD. Moderately high BP. Good UOP. Tolerating TF.
[2016-07-20] MEDS ORDERED: Mag Sulf 4 Gm/100 mL IV Premix (Mag < 1.6 & Creat < 2) IV ONE (06:00)
[2016-07-20] MEDS ORDERED: Potassium Chloride 20 mEq/15 mL Oral Soln(K 3 - 3.7 & Creat < 2) TUBE ONE (06:00)
--- NOTE | 2016-07-20 07:56 | DRSVH ---
PROCEDURE: X-RAY CHEST ONE VIEW, PORTABLE ([id number]) INDICATIONS: vent TECHNIQUE: One view of the chest was acquired. COMPARISON: [facility], CR, XR CHEST 1VW (PORTABLE), 07/18/2016, 10:36. [facility], CR, XR CHEST 1VW (PORTABLE), 07/18/2016, 13:55. FINDINGS: Surgical changes and devices: ETT tip projected 3.4 cm above the handy. Nasogastric tube has been r etracted tip now projected over the mid to distal esophagus. Lungs and pleura: No pleural effusions or pneumothorax. Medial bibasilar airspace opacities no sign ificant change. Mediastinum: Mediastinal contours appear normal. Heart size is normal. Bones and chest wall: No suspicious bony lesions. Overlying soft tissues appear unremarkable. IMPRESSION: 1. Interval retraction of the nasogastric tube as above. 2. Bibasilar atelectasis versus aspiration or pneumonia not significantly changed. Mehnaz Luciano RN given results given results at 0810 hrs. 07/20/2016. Dictated by: Justin Lomas [facility] Interpreted: Denny Clayton MD on 07/20/2016 at 7:52 Transcribed by: ÁLVARO on 07/20/2016 at 7:55 Approved by: Denny Clayton M.D. on 07/20/2016 at 10:28
[2016-07-20] MEDS: Famotidine Inj 20 MG in IV Premix 1 EACH IV SCH ×2 (08:55→19:55)
[2016-07-20] MEDS: cefTRIAXone Inj 1,000 MG in Dextrose 5% Minibag Plus 50 ML IV SCH (08:55)
[2016-07-20] MEDS: Insulin Human REGular 300 Unit/3 mL Inj SUBQ SCH ×4 (08:57→21:16)
--- NOTE | 2016-07-20 09:00 | DRSVH ---
PROCEDURE: X-RAY CHEST ONE VIEW, PORTABLE ([id number]) INDICATIONS: Orogastric tube placement. TECHNIQUE: One view of the chest was acquired. COMPARISON: [facility], CR, XR CHEST 1VW (PORTABLE), 07/20/2016, 2:53. FINDINGS: Surgical changes and devices: There is a new orogastric tube extending into the stomach with the tip not included on the current study. Endotracheal tube is redemonstrated with tip approximately 3 cm f rom the handy, stable from the prior study. Lungs and pleura: No pleural effusions or pneumothorax. There are patchy infrahilar opacities redem onstrated bilaterally. There is blunting of the left costophrenic angle suggesting a small left pleu ral effusion. Mediastinum: Mediastinal contours appear unchanged. Heart size is normal. Bones and chest wall: No suspicious bony lesions. Overlying soft tissues appear unremarkable. IMPRESSION: 1. New orogastric tube extends into the stomach with the tip not included on the current study. 2. Persistent bibasilar infrahilar opacities suggesting consolidation versus atelectasis or aspirati on. There is also probable small left pleural effusion. Dictated by: Corey Ennis M.D. on 07/20/2016 at 8:57 Approved by: Corey Ennis M.D. on 07/20/2016 at 8:58
[2016-07-20] MEDS ORDERED: Dexmedetomidine Inj 400 MCG in 0.9% Sodium Chloride 100 ML IV SCH ×2 (09:55→10:00)
[2016-07-20] MEDS: FLUoxetine 4 mg/mL 118 mL Solution PO SCH (10:03)
--- NOTE | 2016-07-20 10:26 | PROG NOTE ---
[address] [address] PROGRESS NOTE PATIENT: ALETHEA GOOD : 1945 MR#: [id number] ADMIT: 07/18/2016 JOB ID: [id number] DATE: PROBLEM LIST: Intentional overdose probably multisubstance including temazepam. SUBJECTIVE: None. OBJECTIVE: Temperature 36.9, pulse 68-74, respiratory rate at 10-12 with ventilator set at 10. Blood pressure 146/50, O2 sat on FiO2 of 28%, PEEP of five is 99%. I and O shows 3.3 liters in, 3.1 L out. General appearance: Seemed to open her eyes and move somewhat around in bed when stimulated. However, no real cognitive function. Did not seem to focus on the examiner. Eyes: Conjunctivae are pink. Pupils about 2 mm. Nose and throat could not be examined. Chest: Fairly good breath sounds bilaterally. Lung crowder are relatively clear. Maybe a few crackles at the right lower lateral lung field. Heart: Regular rhythm. Monitor shows sinus rhythm with occasional PACs. Abdomen is soft. Nondistended. A few bowel tones noted. Extremities: No pretibial edema. LABORATORY DATA: Shows a white count of 8600 with 56 polymorphonuclears, 28 lymphocytes, 11 monocytes. Hemoglobin 10.4, slowly decreasing with a hemoglobin of 12.1, 48 hours ago. Platelet count 268,000 and stable. Sodium 143, potassium 3.2 which has been replaced with 40 mEq IV rider, chloride 106, CO2 is 22, BUN 10, creatinine 0.7. Calcium 8.5 with albumin of 3.1. Phosphorus 4. Magnesium 1.4 and being repleted with 4 grams of magnesium sulfate intravenously. Total bilirubin 0.3. AST normal at 16. ALT normal at 9. Alkaline phos normal at 77. Procalcitonin normal at 0.03. Sputum shows rare polys on Gram stain with rare mixed rona. Culture growing only normal rona. Urine culture growing yeast. Chest x-ray from early this morning shows the NG tube in the lower esophagus. NG tube has been repositioned. It is now below the diaphragm presumably in a gastric shadow. However, there is now some vague opacity in the left lower lung field suggestive of aspiration of tube feeding. The patient became somewhat agitated, was kicking, moving around in the bed. Was given some propofol. Now minimally responsive. ASSESSMENT: 1. Intentional polysubstance overdose. Mental status is improving. She certainly is more awake than she has been in the last 48 hours; however, is still a somewhat slow go. She seems rather sensitive to the propofol and we will try substituting dexmedetomidine to see if we can avoid propofol and benzodiazepines. Will likely be extubated on dexmedetomidine to control her anxiety. Will need to back off on her sedation. Will probably need to be extubated on dexmedetomidine likely to BiPAP, but will see how that works out. 2. Multiple electrolyte abnormalities. Remains rather low in magnesium in spite of supplementation. Will need to continue repleting that. Phosphorus is normal. Potassium low and that too has been repleted. PLAN: 1. Start dexmedetomidine. 2. As we get control of her agitation, discontinue propofol. 3. As soon as she starts to awaken, restart pressure support trial. Discussed the situation with Nursing. Also affirmed that the NG tube is now in a usable position. TIME SPENT: So far in critical care is 40 minutes.
[2016-07-20 10:28] LABS: Magnesium 2.7 mg/dL (1.6-2.6)
[2016-07-20] MEDS: SODIUM CHLORIDE 0.9% IV SCH ×2 (10:37→17:24)
[2016-07-20] MEDS: DEXMEDETOMIDINE IV SCH ×2 (10:37→17:24)
[2016-07-20] MEDS: Propofol Inj 1,000,000 MCG in IV Premix 1 EACH IV SCH (10:38)
--- NOTE | 2016-07-20 10:40 | NUR ---
NUTRITION ASSESSMENT: ASSESS: Pt is a 71yo F admitted to CCU for overdose. She is currently vented. Propofol has been turned off. TF was started over the weekend. Per RN, TF is currently off due to OGT migrated out of place. Once tube is back in place, TF will re-start. Plan for possible extubation. PMHX: T2DM, GERD, COSTA, HLD, HTN LABS: Reviewed. K 3.2, Glu 179,, Mg 1.4, Alb 3.1 MEDS: Reviewed. Insulin, GI: 0 BM SKIN: Cain 11, wound consult pending CURRENT WTS: 79.8kg, BMI 28.4kg/m2, admit wt 81.1kg DIET: NPO NUTRITON SUPPORT: Jevity 1.5 @ 50 EST. NEEDS: vent Kcals: 1595-1995kcal/day (20-25kcal/kg) Pro: 95-120g/day (1.2-1.5g/kg) Fluids: 1994-2395ml/day (25-30ml/kg) NUTRITION DIAGNOSIS: 1.) Inadequate oral intake related to decreased ability to consume sufficient energy as evidenced by current NPO status NUTRITION INTERVENTION: 1.) Recommend continue current TF of Jevity 1.5. Recommend advance TF goal rate to 55ml/hr to provide 1815kcal and 77g pro. Recommend addition of 1 packet prosource BID to better meet protein needs. MONITOR / EVAL: TF re-start, wt, GI, labs, POC, nutrition status. Will continue to monitor per high nutrition risk guidelines.
[2016-07-20] MEDS ORDERED: Potassium Chloride 20 mEq/15 mL 15mL Oral Soln PO ONE (11:05)
--- NOTE | 2016-07-20 13:38 | PCM.PNMED ---
Subjective Date of Service July 20, 2016 Subjective Patient now manifesting readily observable response to external stimuli, will open eyes in response to name. She does not respond to commands or verbal cues. Patient was initially tolerating pressure support trial, but became agitated with lightening of sedation prompting initiation of Precedex in place of propofol in hopes of repeating pressure support trial later this evening and progressing towards extubation. Of note the patient will likely have a great deal of anxiety for the extubation process both due to underlying mental health issues, and her experience with her mother's prolonged and ultimately terminal mechanical ventilation. Comprehensive ROS could not be obtained in this minimally responsive patient. Exam Vital Signs Vital Sign - Last Date Time Temp Pulse Resp B/P Pulse Ox O2 Delivery O2 Flow Rate FiO2 07/20/16 12:43 Ventilator 07/20/16 12:42 36.9 56 10 121/49 97 28 Intake and Output 07/19/16 07/19/16 07/20/16 Cumulative From/Thru 15:00 23:00 07:00 07/18/16 10:49 - 07/20/16 05:32 Intake Total 1532 ml 1984 ml 7564 ml Output Total 2000 ml 2250 ml 6375 ml Balance -468 ml -266 ml 1189 ml Intake Oral 1000 ml IV Total 1478 ml 1638 ml 6164 ml Tube Feeding 54 ml 286 ml 340 ml Tube Irrigant 60 ml 60 ml Output Urine Total 2000 ml 2250 ml 6275 ml Gastric Drainage Total 100 ml # Bowel Movements 0 0 Exam Gen: Minimally responsive elderly woman on mechanical ventilator Neck: Supple, non tender, no JVD, Full ROM HEENT: PERRL, eyes with intermittent tracking of movement and light, no scleral icterus no conjunctival pallor CV: RRR, no murmurs rubs or gallops Resp: Lungs with mild BL LL crackles, no rales or rhonchi, prominent ventilator breath sounds Abd: Soft, non-tender, no organomegaly, no rebound or guarding Extr: No clubbing cyanosis or edema Neuro: CN 2-12 grossly intact, no focal neurologic deficit Psych: Pleasant and appropriate mood and affect. IVs and Medications IV Fluids NS @ 125 ml/hr 600 ml delivered with IV meds Medications Reviewed: Medications were reviewed in detail Lab and Diagnostics Item Value Date Time Red Blood Count 3.83 mil/mm3 L 07/20/16 0255 Mean Corpuscular Volume 84.1 fL 07/20/16254 Mean Corpuscular Hemoglobin 27.2 pg 07/20/16254 Mean Corpuscular Hemoglobin Concent 32.3 % 07/20/16254 Red Cell Distribution Width 14.3 % 07/20/16254 Neutrophils (%) (Auto) 56.2 % 07/20/16254 Lymphocytes (%) (Auto) 28.7 % 07/20/16254 Monocytes (%) (Auto) 11.2 % 07/20/16254 Eosinophils (%) (Auto) 3.4 % 07/20/16254 Basophils (%) (Auto) 0.3 % 07/20/16254 Estimat Glomerular Filtration Rate 111 mL/min 07/20/16254 Calcium Level 8.5 mg/dL 07/20/16254 Phosphorus Level 4.0 mg/dL 07/20/16254 Magnesium Level 2.7 mg/dL H 07/20/16954 Total Bilirubin 0.3 mg/dL 07/20/16254 Aspartate Amino Transf (AST/SGOT) 16 U/L 07/20/16254 Alanine Aminotransferase (ALT/SGPT) 9 U/L 07/20/16254 Alkaline Phosphatase 77 U/L 07/20/16254 Total Protein 5.5 g/dL L 07/20/16254 Albumin 3.1 g/dL L 07/20/16254 Procalcitonin 0.03 ng/mL 07/20/16254 Result Diagram: 07/20/1625407/20/16954 Microbiology Urine with preliminary growth of Yeast X-Rays, CTs and MRIs X-RAY CHEST ONE VIEW, PORTABLE IMPRESSION: New enteric tube with tip below the diaphragm. Stable ET tube. Remainder unchanged. Dictated by: Lebron Stubbs M.D. on 07/18/2016 at 14:24 Approved by: Lebron Stubbs M.D. on 07/18/2016 at 14:25 CT BRAIN WITHOUT CONTRAST IMPRESSION: No CT evidence of acute intracranial pathology. Dictated by: Lebron Stubbs M.D. on 07/18/2016 at 16:01 Approved by: Lebron Stubbs M.D. on 07/18/2016 at 16:03 . Additional Diagnostics pH ____7.392 - 7.350 7.450 pCO2 ___41.8__ -mmHg 35.0 45.0 pO2 ___87.6__ -mmHg 69.0 116 HCO3- ___24.8__ -mmol/L 22.0 26.0 ABE ____0.4__ -mmol/L -2.0 2.0 tHb ___10.1__ -g/dL O2Hb ___94.9__ -% COHb ____1.1__ -% MetHb ____1.2__ -% sO2 ___97.1__ -% FIO2 ___28.0__ -% Assessment & Plan Herlinda Cassidy is a 71 year old woman with a PMH of depression with recent expression of suicidal ideation and significantly increased stress in her life recently. Found non-responsive next to several empty pill bottles with likely Benzodiazepine overdose, those exact etiology of AMS uncertain at this point as patient is intubated and sedated and her is a poor historian. 1. Acute encephalopathy, uncertain etiology. POA. Acute. Active -The patient was weaned off of Propofol and transitioned to Precedex with the intention of lightening her sedation in anticipation of SBT this evening -She is currently being mechanically ventilated will follow her spontaneous respirations closely. -Head CT negative -Patient found with several empty pill bottles -Tube feeds initiated while patient is intubated -The patient will likely have a large amount of anxiety and agitation during the extubation process secondary to her underlying mental health issues and a traumatic, prolonged, and ultimately terminal mechanical ventilation of her mother -If the patient's agitation can be mitigated it is likely we could proceed to extubation this evening. -Given the patient's DNI status any extubation has to be treated conservatively as re-intubation would require a change in medical directive and may not be in accordance with the patient's wishes 2. Possible overdose of benzodiazepines, unconfirmed. POA. acute. Active -We will support her airway and respirations of mechanical ventilation. -Will withhold Flumazenil due to concern for acute withdrawal and seizure potential -Plan to wean propofol and do a breathing trial with plan to extubate. -Will add back Benzo therapy once patient clears a little more to prevent withdrawal or seizures 3 Diabetes Mellitus 2, POA. chronic. Active -Lantus 5U Qhs -Correctional lispro with every 6 Accu-Cheks -A1c pending 4. Essential hypertension, POA.Chronic. Active -We will use labetalol when necessary for systolic blood pressure > 170 -Patient currently hemodynamically stable, no need for pressors -Will re-initiate home anti-hypertensives once patient more cogent 5. Possible UTI, POA, acute. Active -Uncertain if this is simple pyuria or lana infection as patient cannot answer dysuria questions -Ceftriaxone 2g Q24 for broad coverage -Urine culture preliminary results indicate Yeast, likely Suze, possibly colonization or spurious reading, will withhold anti-fungals for the time being. -Low threshold to DC antibiotics given negative cultures and uncertain symptoms Disposition: Patient remains intubated and sedated, hopefully she will be able to wean off in the near future. She will likely need another few days after extubation to recover strength prior to DC, ideal placement uncertain at this time awaiting return of consciousness and work with PT. Pain Evaluation: Adequate Pain Control GI Prophylaxis: H2 paulette VTE Prophylaxis: Sub-Q Heparin (Unfractionated) VTE Mechanical Devices: Intermittant Pneumatic CD Resuscitation Status: DNR/DNI:Do Not Resuscitate/Intubate Attending Statement The patient was seen and examined together with Dr. Garcia on 07/20/2016 and I agree with the history, exam and plan as outlined in the note above. . Juan Garcia DO July 20, 2016 13:38 Roddy Bowman MD Jul 22, 2016 20:03
--- NOTE | 2016-07-20 17:16 | NUR ---
Wound Note Pressure ulcer protocol received, discussed patients case with nursing, no skin issues identified at this time related to pressure, pt on a ccu bed.
--- NOTE | 2016-07-20 17:51 | NUR ---
Pt status Continues on PRVC with 28% fi02 and PEEP of 5. Precedex gtt continued for ventilator tolerance and sedation. Pt opens eyes to verbal stimuli, unable to follow commands at this time. RASS -2 to -3. SB/SA per manager continuous improvement. Pressure stable. Afebrile. Jevity tube feeding at 55cc/hr, residuals 150cc this evening. Will continue to monitor.
[2016-07-20] MEDS: Insulin GLARgine 100 Unit/mL Syringe SUBQ SCH (21:15)
[2016-07-21] VITALS (13 sets, daily range): BP systolic 161–184; BP diastolic 52–71; PULSE 48–89; RESP 11–24; O2SAT 94–98
[2016-07-21] MEDS: Chlorhexidine 0.12% 15 mL Oral Solution MT SCH ×7 (00:21→20:06)
[2016-07-21] MEDS: Heparin 5,000 Unit/mL Inj SUBQ SCH ×3 (00:21→16:17)
[2016-07-21] MEDS: Insulin Human REGular 300 Unit/3 mL Inj SUBQ SCH ×4 (03:03→19:58)
[2016-07-21 03:19] LABS: BASOPHILS % (AUTO) 0.3 % (0-3); EOSINOPHILS % (AUTO) 4.8 % (0-5); MONOCYTES % (AUTO) 9.8 % (4-12); Mean Corpuscular Hemoglobin 27.3 pg (27.0-35.0); Mean Corpuscular Volume 84.4 fL (81-100); NEUTROPHILS % (AUTO) 55.2 % (40-74); Platelet Count 243 bil/L (150-400)
[2016-07-21 03:31] LABS: INR 0.95 ratio
[2016-07-21] MEDS: 0.9% Sodium Chloride 1,000 ML IV SCH (03:59)
[2016-07-21 04:04] LABS: Magnesium 1.9 mg/dL (1.6-2.6)
[2016-07-21] MEDS: SODIUM CHLORIDE 0.9% IV SCH ×2 (04:07→13:34)
[2016-07-21] MEDS: DEXMEDETOMIDINE IV SCH ×2 (04:07→13:34)
--- NOTE | 2016-07-21 04:23 | NUR ---
P: pt able to dislodge feeding tube w/ tongue I: reposition feeding tube, aspirate, and check for placement E: RASS -2 on precedex at 0.5mcg. Nods no to pain. Nods no to placing feeding tube down nose. ABle to get looped feeding tube back in place. LS trace decrease at bases. Attempts to reach for ETT. Sats in the mid 90s on 28%. Generally breathes over vent rate by 1-3 breathes. Tele SB/SA. SBP 140-170s. Afebrile. Good UOP. Denies N/V. Overall tolerates TF.
[2016-07-21] MEDS ORDERED: Insulin Human REGular 300 Unit/3 mL Inj SUBQ SCH (08:00)
[2016-07-21] MEDS ORDERED: Dextrose 10% 250 ML IV PRN (08:25)
--- NOTE | 2016-07-21 08:58 | DRSVH ---
PROCEDURE: X-RAY CHEST ONE VIEW, PORTABLE ([id number]) INDICATIONS: intubated patient with poss aspiration TECHNIQUE: One view of the chest was acquired. COMPARISON: [facility], CR, XR CHEST 1VW (PORTABLE), 07/20/2016, 8:23. FINDINGS: Surgical changes and devices: Stable positioning of the ETT and nasogastric tube. Lungs and pleura: Persistent bibasilar air space opacities not significantly changed. Lungs otherwis e are clear. Mediastinum: Mediastinal contours appear normal. Heart size is normal. Bones and chest wall: No suspicious bony lesions. Overlying soft tissues appear unremarkable. IMPRESSION: 1. Support lines and tubes stable position. 2. Bibasilar atelectasis versus aspiration or pneumonia not significantly changed. Dictated by: Justin Lomas [facility] Interpreted: Denny Clayton MD on 07/21/2016 at 8:56 Transcribed by: ÁLVARO on 07/21/2016 at 8:58 Approved by: Denny Clayton M.D. on 07/21/2016 at 10:20
[2016-07-21] MEDS: cefTRIAXone Inj 1,000 MG in Dextrose 5% Minibag Plus 50 ML IV SCH (09:53)
[2016-07-21] MEDS: Famotidine Inj 20 MG in IV Premix 1 EACH IV SCH ×2 (09:54→20:06)
[2016-07-21] MEDS: FLUoxetine 4 mg/mL 118 mL Solution PO SCH (09:54)
[2016-07-21] MEDS ORDERED: 0.9% Sodium Chloride 250 ML ONE (10:11)
--- NOTE | 2016-07-21 10:39 | PROG NOTE ---
[address] [address] PROGRESS NOTE PATIENT: ALETHEA GOOD : 1945 MR#: [id number] ADMIT: 07/18/2016 JOB ID: [id number] DATE: 07/21/2016 PROBLEM: Intentional overdose likely multisubstance including temazepam. SUBJECTIVE: None. OBJECTIVE: Temperature 36.8. Pulse of 48-57, respiratory rate 12, blood pressure 161/55, O2 sat on FiO2 of 28% PEEP of 5 is 96%. I and O shows 4.1 liters in, 3.6 liters out. General appearance: Sedated. Will open her eyes to verbal or tactile stimuli. However, when not stimulated she nods off to sleep. Eyes conjunctivae are pink. Chest fair breath sounds on spontaneous respiratory pressure support trial. Relatively clear. No use of accessory muscles. However on pressure support of 15/5 tidal volume only about 350 mL. Heart regular rhythm. Heart tones normal. Abdomen is soft. Bowel tones present. Extremities no pretibial edema. LABORATORY DATA: Shows a white count of 8000, with a normal differential. Hemoglobin 10.7 and stable. Platelet count at 243,000 and stable. Sodium 139, potassium 4, chloride 104. CO2 is 21. BUN 11, creatinine 0.6. Glucose 279, has been rising slowly over the last 36 hours. Calcium 8.6 with albumin of 3. Phosphorus normal at 3. Magnesium normal 1.9. Bilirubin, transaminases, alk phos all normal. ProTime 10.2 seconds with an INR 0.95 seconds. Chest x-ray shows some bibasilar opacities unchanged from previous studies. Lines in good position. ASSESSMENT: Apparent intentional overdose. Slowly improving. Mental status is improving. She is more awake, though still requires constant stimulation to remain in the arousal state. Will continue with pressure support trial today. Is taking somewhat small breaths given pressure support of 15/5. Hopefully with improved arousal will take deeper breaths. Certainly her oxygenation is okay. Chest x-ray shows some bibasilar infiltrates probably due to aspiration pneumonitis. IV fluid status. The patient currently receiving Jevity 1.5 tube feeding at 55 mL an hour and normal saline at 125 mL an hour. I and O is 4.6 in and 3.1 out. I think we can get rid of the IV fluids as I do not think she particularly requires them. Tube feeding and her various drips should take care of her daily fluid requirements. Sedation. Patient certainly less anxious. Given that she is somewhat lethargic I think we can continue to decrease the dexmedetomidine finding the level at which she is comfortable, but more awake. PLAN: 1. Discontinue normal saline infusion. 2. Decrease dexmedetomidine to 0.4 mics per kg per hour. 3. If sugar continues to be a problem consider alternate method of administration eschewing the subcu route. Check with our nutrition department, and we apparently do not have alternative tube feeding formulas for diabetes. Case discussed with nursing and plans made for the day. TIME SPENT: Critical care 35 minutes.
--- NOTE | 2016-07-21 10:39 | PCM.PNMED ---
Subjective Date of Service July 21, 2016 Subjective The patient has improved slightly in the past 24 hours, she now responds to verbal cues and follows commands. Pressure support trials yesterday were complicated initially by agitation requiring increase in sedation, and the by somnolence secondary to said sedation. Patient unable to respond to ROS questions in any meaningful fashion. Comprehensive ROS unable to be obtained as above. Exam Vital Signs Vital Sign - Last Date Time Temp Pulse Resp B/P Pulse Ox O2 Delivery O2 Flow Rate FiO2 07/21/16 08:32 48 161/55 96 28 07/21/16 04:30 Ventilator 07/21/16 04:30 36.8 12 Intake and Output 07/20/16 07/20/16 07/21/16 Cumulative From/Thru 15:00 23:00 07:00 07/18/16 10:49 - 07/21/16 06:05 Intake Total 2193 ml 2220 ml 53148 ml Output Total 1400 ml 1350 ml 9125 ml Balance 793 ml 870 ml 2852 ml Intake Oral 1000 ml IV Total 1684 ml 1528 ml 9376 ml Tube Feeding 469 ml 572 ml 1381 ml Tube Irrigant 40 ml 120 ml 220 ml Output Urine Total 1400 ml 1350 ml 9025 ml Gastric Drainage Total 100 ml # Bowel Movements 0 0 Exam Gen: Intubated sedated patient minimally responsive to external stimuli Neck: Supple, non tender, no JVD, Full ROM, HEENT: PERRL, EOMI, no scleral icterus, no conjunctival pallor, ET tube in place and appears patent CV: RRR no murmurs rubs or gallops Resp: Lungs CTA BL, no wheezing rales or rhonchi, ventilator breath sounds Abd: Soft, non-tender, no organomegaly, no rebound or guarding Extr: No clubbing cyanosis, delayed capillary refill, mild BL LE non pitting edema Neuro: CN difficult to assess with underlying sedation, no focal neurologic deficit IVs and Medications IV Fluids 600 ml NS delivered with IV meds Medications Reviewed: Medications were reviewed in detail Lab and Diagnostics Item Value Date Time Red Blood Count 3.92 mil/mm3 07/21/16 030 Mean Corpuscular Volume 84.4 fL 07/21/16 0300 Mean Corpuscular Hemoglobin 27.3 pg 07/21/16299 Mean Corpuscular Hemoglobin Concent 32.3 % 07/21/16 0300 Red Cell Distribution Width 14.3 % 07/21/16299 Platelet Count 243 terry/L 07/21/16299 Neutrophils (%) (Auto) 55.2 % 07/21/16 030 Monocytes (%) (Auto) 9.8 % 07/21/16 030 Lymphocytes (%) (Auto) 29.8 % 07/21/16 030 Eosinophils (%) (Auto) 4.8 % 07/21/16 030 Basophils (%) (Auto) 0.3 % 07/21/16 030 Estimat Glomerular Filtration Rate 124 mL/min 07/21/16299 Calcium Level 8.6 mg/dL 07/21/16299 Phosphorus Level 3.0 mg/dL 07/21/16299 Magnesium Level 1.9 mg/dL 07/21/16 030 Total Bilirubin 0.3 mg/dL 07/21/16299 Aspartate Amino Transf (AST/SGOT) 14 U/L 07/21/16 030 Alanine Aminotransferase (ALT/SGPT) 9 U/L 07/21/16 030 Alkaline Phosphatase 72 U/L 07/21/16 030 Total Protein 6.2 g/dL L 07/21/16299 Albumin 3.0 g/dL L 07/21/16 030 Procalcitonin 0.03 ng/mL 07/21/16 030 Result Diagram: 07/21/16 03007/21/16299 Microbiology Urine with preliminary growth of Yeast X-Rays, CTs and MRIs CT BRAIN WITHOUT CONTRAST IMPRESSION: No CT evidence of acute intracranial pathology. Dictated by: Lebron Stubbs M.D. on 07/18/2016 at 16:01 Approved by: Lebron Stubbs M.D. on 07/18/2016 at 16:03 X-RAY CHEST ONE VIEW, PORTABLE IMPRESSION: 1. Support lines and tubes stable position. 2. Bibasilar atelectasis versus aspiration or pneumonia not significantly changed. Dictated by: Justin Lomas [facility] Interpreted: Denny Clayton MD on 07/21/2016 at 8: 56 Transcribed by: ÁLVARO on 07/21/2016 at 8:58 Approved by: Denny Clayton M.D. on 07/21/2016 at 10:20 . Assessment & Plan Herlinda Cassidy is a 71 year old woman with a PMH of depression with recent expression of suicidal ideation and significantly increased stress in her life recently. Found non-responsive next to several empty pill bottles with likely Benzodiazepine overdose, those exact etiology of AMS uncertain at this point as patient is intubated and sedated and her is a poor historian. 1. Acute encephalopathy, uncertain etiology. POA. Acute. Active -The patient was weaned off of Propofol and transitioned to Precedex with the intention of lightening her sedation in anticipation of SBT -She is currently being mechanically ventilated will follow her spontaneous respirations closely. -Head CT negative -Patient found with several empty pill bottles -Tube feeds initiated while patient is intubated -The patient will likely have a large amount of anxiety and agitation during the extubation process secondary to her underlying mental health issues and a traumatic, prolonged, and ultimately terminal mechanical ventilation of her mother -If the patient's agitation can be mitigated it is likely we could proceed to extubation today -Given the patient's DNI status any extubation has to be treated conservatively as re-intubation would require a change in medical directive and may not be in accordance with the patient's wishes; will attempt to contact family to clarify this status 2. Possible overdose of benzodiazepines, unconfirmed. POA. acute. Active -We will support her airway and respirations of mechanical ventilation. -Will withhold Flumazenil due to concern for acute withdrawal and seizure potential -Plan to wean propofol and do a breathing trial with plan to extubate. -Will add back Benzo therapy once patient clears a little more to prevent withdrawal or seizures 3 Diabetes Mellitus 2, POA. chronic. Active -Lantus 10U Qhs -Correctional NPH medium dose algorithm -A1c 6.8 4. Essential hypertension, POA.Chronic. Active -We will use labetalol when necessary for systolic blood pressure > 170 -Patient currently hemodynamically stable, no need for pressors -Will re-initiate home anti-hypertensives once patient more cogent 5. Possible UTI, POA, acute. Active -Uncertain if this is simple pyuria or lana infection as patient cannot answer dysuria questions -Ceftriaxone 2g Q24 for broad coverage -Urine culture preliminary results indicate Yeast, likely Suze, possibly colonization or spurious reading, will withhold anti-fungals for the time being. -Low threshold to DC antibiotics given negative cultures and uncertain symptoms Disposition: Patient remains intubated and sedated, hopefully she will be able to wean off in the near future. She will likely need another few days after extubation to recover strength prior to DC, ideal placement uncertain at this time awaiting return of consciousness and work with PT. Pain Evaluation: Adequate Pain Control GI Prophylaxis: H2 paulette VTE Prophylaxis: Sub-Q Heparin (Unfractionated) VTE Mechanical Devices: Intermittant Pneumatic CD Resuscitation Status: DNR/DNI:Do Not Resuscitate/Intubate Attending Statement The patient was seen and examined together with Dr. Garcia on 07/21/2016 and I agree with the history, exam and plan as outlined in the note above. . Juan Garcia DO July 21, 2016 10:38 Roddy Bowman MD Jul 22, 2016 20:04
--- NOTE | 2016-07-21 13:05 | NUR ---
NUTRITION FOLLOW-UP: ASSESS: Pt is a 71yo F admitted to CCU for overdose. She is currently vented. Propofol has been turned off. TF was started over the weekend. TF has been tolerated well. TF formula changed today to help with better BG control. RN is aware. No BM has been recorded since admit. PMHX: T2DM, GERD, COSTA, HLD, HTN LABS: Reviewed. Glu 279, Alb 3.0 MEDS: Reviewed. Insulin, GI: 0 BM SKIN: Cain 11, No PU per WC CURRENT WTS: 81.3kg, BMI 28.9kg/m2, admit wt 81.1kg DIET: NPO NUTRITON SUPPORT: Jevity 1.5 @ 55 EST. NEEDS: vent Kcals: 1595-1995kcal/day (20-25kcal/kg) Pro: 95-120g/day (1.2-1.5g/kg) Fluids: 1995-2395ml/day (25-30ml/kg) NUTRITION DIAGNOSIS: 1.) Inadequate oral intake related to decreased ability to consume sufficient energy as evidenced by current NPO status NUTRITION INTERVENTION: 1.) Now that Carb controlled TF is available, will switch pt to Glucerna 1.5 @ 55ml/hr to provide 1815kcal and 100g pro (100% estimated needs). Recommend start TF at 25ml/hr and advance by 10ml q 4 hrs as Glucerna has a much higher osmolality than Jevity. RN is aware of recommendations. MONITOR / EVAL: TF gunnar, BM, wt, GI, labs, POC, nutrition status. Will continue to monitor per high nutrition risk guidelines.
--- NOTE | 2016-07-21 13:31 | NUR ---
Christopher: Christopher Signed by pt . Pt still remains on the vent. OLGA Santiago
[2016-07-21] MEDS ORDERED: Ketorolac 15 mg/mL Inj IVPUSH PRN (14:35)
--- NOTE | 2016-07-21 16:39 | NUR ---
Social Work Note: Initial Assessment Data& Assessment: Pt remains on the vent. Herlinda Cassidy is a 71 year old female admitted on 07/18/2016 for overdose. Pt has Medicare and [employer] supplemental insurance coverage. Pt sees Dr. Vences for primary care in [place]. Per ED report, pt was positive for Benzo's and TCA Antidepressants, psychiatric evaluation pending. SW met with pt at bedside to gather initial assessment information and assess for any unmet needs. Pt lives at home with her spouse in an apartment in [place] and is independent at baseline with no DME and no HH or SNF hx. Pt does not have LTC insurance or VA benefits. Pt provided with copy of DPOA/Advance Directive to review and complete with pt when appropriate. Pt denies any other needs at this time. SW to continue to follow for medical prognosis and progression. SW to continue to follow for MD orders. Plan: Pt remains on the vent. SW to continue to follow for medical prognosis and progression. SW to continue to follow for MD orders. OLGA Santiago Addendum: 07/21/16 at 1644 by FRANK SHERMAN Amended: Links added.
--- NOTE | 2016-07-21 16:50 | NUR ---
Evaluation completed. Please go to "Notes" then click on "Assessments and Notes" (bottom left corner of screen). Then select appropriate discipline tab on top of screen.
--- NOTE | 2016-07-21 18:04 | NUR ---
Sedation/Extubation/Swallow Eval/Mentation Patient on Precedex at beginning of shift 0.5 mcg. MD ordered to decrease to 0.4 mcg. Patient was then placed on PST and lasted about 5 hours, doing well. Precedex was turned off once MD decided to extubate. Patient was extubated to 2L NC at 1405. Restraints dcd at 1400. Patient tolerated well. Sats have remained at 95%. Patient is coughing up creamy thick sputum and using Yankaur for oral suction independently. Patient did well with swallow eval and was placed on STIM diet, although she refused dinner tray. "I'm just not hungry". Patient is a/o, cooperative. Tearful at times. She stated "I just wanted to go to sleep and never wake up". Patient verbalized no intent to hurt herself today. Listened and offered encouragement. Declined a hospital Trash [employer]or visit today. Continuing with POC.
[2016-07-21] MEDS ORDERED: Insulin GLARgine 100 Unit/mL Syringe SUBQ SCH (21:00)
[2016-07-21] MEDS ORDERED: Labetalol 5 mg/mL 20 mL Inj IV PRN (21:35)
[2016-07-22] VITALS (9 sets, daily range): BP systolic 141–179; BP diastolic 72–92; PULSE 62–101; RESP 16–18; O2SAT 93–97
[2016-07-22] MEDS: Heparin 5,000 Unit/mL Inj SUBQ SCH ×3 (00:29→17:12)
[2016-07-22] MEDS: Chlorhexidine 0.12% 15 mL Oral Solution MT SCH ×5 (00:37→20:53)
[2016-07-22] MEDS: Insulin Human REGular 300 Unit/3 mL Inj SUBQ SCH ×4 (03:04→20:52)
[2016-07-22 03:42] LABS: BASOPHILS % (AUTO) 0.3 % (0-3); EOSINOPHILS % (AUTO) 3.1 % (0-5); MONOCYTES % (AUTO) 8.6 % (4-12); Mean Corpuscular Hemoglobin 27.5 pg (27.0-35.0); Mean Corpuscular Volume 83.4 fL (81-100); NEUTROPHILS % (AUTO) 62.4 % (40-74); Platelet Count 327 bil/L (150-400)
[2016-07-22 03:54] LABS: INR 0.97 ratio
[2016-07-22 04:10] LABS: Magnesium 1.6 mg/dL (1.6-2.6); Phosphorus 5.1 mg/dL (2.5-4.9)
--- NOTE | 2016-07-22 05:48 | NUR ---
Transfer Pt transferred from room 2013 to room 2023 at approx. 2230; report received from Valeriano Dexter RN. Pt AOx3, able to BURGESS, moved self from CCU bed to PCC bed with minimal assistance. Pt denies pain other than soreness to bilateral hands from gout flare. Requested sleeping medication and gout medication; paged; orders obtained and medications given. Pt unable to rest this shift. Reported severe headache this AM; Tylenol given with complete relief upon reassessment. Pt stood to standing scale with aide, tolerated fair. Meds crushed in pudding, pt tolerating well. VSS, hypertension this shift with 1x dose of labetalol given per report; SBP approx. 150s-160s throughout rest of shift. 2L NC. Tele SR 80s.
--- NOTE | 2016-07-22 08:20 | DRSVH ---
PROCEDURE: X-RAY CHEST ONE VIEW, PORTABLE ([id number]) INDICATIONS: fu aspiration TECHNIQUE: One view of the chest was acquired. COMPARISON: [facility], CR, XR CHEST 1VW (PORTABLE), 07/21/2016, 4:45. FINDINGS: Surgical changes and devices: None. Lungs and pleura: Lung volumes have increased and bibasilar airspace opacities have slightly decrease d no pleural effusion or pneumothorax. Mediastinum: Mediastinal contours appear normal. Heart size is normal. Bones and chest wall: No suspicious bony lesions. Overlying soft tissues appear unremarkable. IMPRESSION: Increased lung volumes and decreasing the bibasilar airspace opacities suggesting resolvi ng atelectasis versus aspiration or pneumonia. Dictated by: Justin Lomas [facility] Interpreted: Jacek Bautista MD on 07/22/2016 at 8:19 Transcribed by: KUSH on 07/22/2016 at 8:19 Approved by: Jacek Bautista M.D. on 07/22/2016 at 12:18
[2016-07-22] MEDS: Famotidine Inj 20 MG in IV Premix 1 EACH IV SCH (08:47)
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
--- NOTE | 2016-07-22 10:28 | NUR ---
NUTRITION FOLLOW-UP: ASSESS: Pt is a 71yo F admitted to CCU for overdose. Pt was able to be extubated 07/21. ST has advanced her diet to stimulation with good prognosis for diet advc. RN noted that pt's appetite is improving today. Pt has not had a BM since admit PMHX: T2DM, GERD, COSTA, HLD, HTN LABS: Reviewed. Glu 201, phos 5.1, Alb 3.1 MEDS: Reviewed. Insulin, GI: 0 BM SKIN: Cain 19, No PU per WC CURRENT WTS: 76.6kg, BMI 27.3kg/m2, admit wt 81.1kg DIET: stimulation EST. NEEDS: vent Kcals: 1595-1995kcal/day (20-25kcal/kg) Pro: 95-120g/day (1.2-1.5g/kg) Fluids: 1994-2395ml/day (25-30ml/kg) NUTRITION DIAGNOSIS: 1.) Inadequate oral intake related to decreased ability to consume sufficient energy as evidenced by current NPO status--IMPROVING 2.) Chew/swallow difficulty related to throat pain from intubation as evidence by need for stimulation diet NUTRITION INTERVENTION: 1.) Continue to advance diet per ST. MONITOR / EVAL: ST, PO, diet advc, BM, wt, labs, POC, nutrition status. Will continue to monitor per high nutrition risk guidelines. Addendum: 07/22/16 at [address] EST. NEEDS: Kcals:1915-2300kcal/day (25-30kcal/kg) Pro: 80-95g/day (1.0-1.2g/kg) Fluids: 1915-2300ml/day (25-30ml/kg)
[2016-07-22] MEDS ORDERED: Mesalamine 1.2 Gm ER Tablet PO SCH (10:50)
--- NOTE | 2016-07-22 11:27 | NUR ---
Evaluation completed. Please go to "Notes" then click on "Assessments and Notes" (bottom left corner of screen). Then select appropriate discipline tab on top of screen.
[2016-07-22] MEDS ORDERED: 0.9% Sodium Chloride 100 ML ONE (11:28)
[2016-07-22] MEDS: FLUoxetine 4 mg/mL 118 mL Solution PO SCH (11:36)
[2016-07-22] MEDS: cefTRIAXone Inj 1,000 MG in Dextrose 5% Minibag Plus 50 ML IV SCH (12:14)
--- NOTE | 2016-07-22 12:39 | NUR ---
home medication Medication, Crista in drawer. Verified by Pharmacy
[2016-07-22] MEDS: MESALAMINE 1.2 GM PO SCH (12:41)
[2016-07-22] MEDS ORDERED: Albuterol 2.5 mg/3 mL Inhalation Solution NEB PRN (16:00)
[2016-07-22] MEDS: metFORMIN ER 500 mg ER24 Tablet PO SCH (17:13)
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
--- NOTE | 2016-07-22 18:08 | NUR ---
mentation Pt was a&O X4. Cooperative with care. Pt was willing to engage and stated that she was overwhelmed with all that was occurring in her life at time of the overdose, that the problems weren't going to disappear anytime soon, and that she was willing to seek outside help for coping mechanisms. Pt seemed remorseful for her actions.
[2016-07-22] MEDS ORDERED: Insulin GLARgine 100 Unit/mL Syringe SUBQ SCH (21:00)
[2016-07-23 00:05] VITALS: BP 137/76; PULSE 87; RESP 16; O2SAT 93
[2016-07-23] MEDS: Chlorhexidine 0.12% 15 mL Oral Solution MT SCH ×4 (01:04→12:30)
[2016-07-23] MEDS: Heparin 5,000 Unit/mL Inj SUBQ SCH ×2 (01:04→08:36)
[2016-07-23] MEDS: Insulin Human REGular 300 Unit/3 mL Inj SUBQ SCH ×2 (02:30→08:37)
[2016-07-23 03:52] LABS: BASOPHILS % (AUTO) 0.7 % (0-3); EOSINOPHILS % (AUTO) 6.3 % (0-5); MONOCYTES % (AUTO) 10.4 % (4-12); Mean Corpuscular Hemoglobin 27.6 pg (27.0-35.0); Mean Corpuscular Volume 84.3 fL (81-100); NEUTROPHILS % (AUTO) 47.3 % (40-74); Platelet Count 296 bil/L (150-400)
[2016-07-23 04:29] VITALS: BP 149/79; PULSE 79; RESP 18; O2SAT 96
[2016-07-23 05:16] VITALS: PULSE 79
--- NOTE | 2016-07-23 06:00 | NUR ---
Sleep Patient was started on seroquel along with melatonin to help promote sleep. Patient would dose off to sleep but would rest lightly and wake up through the night.
[2016-07-23 07:56] VITALS: PULSE 64
[2016-07-23 08:22] VITALS: BP 151/67; PULSE 65; RESP 19; O2SAT 97
[2016-07-23] MEDS: FLUoxetine 4 mg/mL 118 mL Solution PO SCH (08:35)
[2016-07-23] MEDS: metFORMIN ER 500 mg ER24 Tablet PO SCH (08:36)
[2016-07-23] MEDS: MESALAMINE 1.2 GM PO SCH (08:37)
[2016-07-23] MEDS: cefTRIAXone Inj 1,000 MG in Dextrose 5% Minibag Plus 50 ML IV SCH (08:39)
--- NOTE | 2016-07-23 09:49 | PCM.DIMED ---
Juan Garcia DO 07/23/16 0949: Discharge Instructions Date of Service Jul 23, 2016 Dates of Hospitalization July 18, 2016 at 12:00 Discharge Diagnosis Discharge Diagnosis 1. Acute encephalopathy, uncertain etiology. POA. Acute. Improving 2. Overdose of benzodiazepines, unconfirmed. POA. acute. Active 3. Insomnia, present on admission, acute on chronic. Active 4. Diabetes Mellitus 2, POA. chronic. Active 5. Essential hypertension, POA.Chronic. Active 6. Possible UTI, POA, acute. Active 7. History of inflammatory bowel disease, POA, chronic. Active . Diet Discharge Diet: No restrictions Activity Discharge Activity: No restrictions Call your provider Call your provider for: Fever or Chills, Shortness of breath, Bleeding, Chest pain, Vomitting, Excessive diarrhea, Weakness (unilateral), Other (Thoughts of harming yourself or others) Patient Instructions Patient Instructions Please take all medications as directed. We have been able to schedule you an appointment with Dr. Gonsalves from [facility] who will be able to refer you to a mental health provider, this appointment is 9:00 am on next Tuesday07/26/16. Follow-up plan Follow up with your Primary care provider Dr. Loza. As above please follow up with Dr. Gonsalves on Tuesday07/26/16 at 9 am to be referred to a mental health provider. Follow-up Provider: Horace Hall MD Follow-up with PCP in: 1 week Provider: Ivon Gonsalves MD Follow-up in: 1 week (Tuesday07/26/16 at 9 am) Roddy Bowman MD 07/23/16 1515: Discharge Instructions Attending's Statement The patient was seen and examined together with Dr. Garcia on 07/23/2016 and I agree with the history, exam and plan as outlined in the note above. . Juan Garcia DO Jul 23, 2016 09:49 Roddy Bowman MD Jul 23, 2016 15:15
[2016-07-23] MEDS ORDERED: QUET25TA73 PO (09:50)
--- NOTE | 2016-07-23 09:57 | PCM.DC.MED ---
Discharge Summary Date of Service Jul 23, 2016 Dates of Hospitalization Date of Hospital Admission July 18, 2016 at 12:00 Date of Discharge: Jul 23, 2016 Providers: Admitting Physician: Tomi Joseph MD Primary Care Physician: Ivon Gonsalves MD Attending Physician: Tomi Joseph MD Diagnosis at Time of Discharge Diagnosis at Time of Discharge 1. Acute encephalopathy, uncertain etiology. POA. Acute. Improving 2. Overdose of benzodiazepines, unconfirmed. POA. acute. Active 3. Insomnia, present on admission, acute on chronic. Active 4. Diabetes Mellitus 2, POA. chronic. Active 5. Essential hypertension, POA.Chronic. Active 6. Possible UTI, POA, acute. Active 7. History of inflammatory bowel disease, POA, chronic. Active . Consultations Social work mental health referral Procedures XRay, CTs & MRIs CT BRAIN WITHOUT CONTRAST IMPRESSION: No CT evidence of acute intracranial pathology. Dictated by: Lebron Stubbs M.D. on 07/18/2016 at 16:01 Approved by: Lebron Stubbs M.D. on 07/18/2016 at 16:03 X-RAY CHEST ONE VIEW, PORTABLE IMPRESSION: 1. Support lines and tubes stable position. 2. Bibasilar atelectasis versus aspiration or pneumonia not significantly changed. Dictated by: Justin Lomas RR Interpreted: Denny Clayton MD on 07/21/2016 at 8: 56 Transcribed by: ÁLVARO on 07/21/2016 at 8:58 Approved by: Denny Clayotn M.D. on 07/21/2016 at 10:20 . Brief History Taken From HPI composed by Dr. Tomi Joseph on 07/18 This is a patient who was intubated in the field. She was seen by medics because of acute mental status changes. There was some inflammation suggesting a possible benzodiazepine overdose but this is not confirmed. The patient's notes that she has been suicidal recently and also states he did not speak with her this morning. Apparently she was up at breakfast and became acutely confused. Family members called 911. At that time the details are unclear she was already intubated while being transported to the emergency department. There she apparently was progression to some degree and was started on propofol. The patient was noted to have pinpoint pupils and was given 2 doses of Maalox on without effect. Brain imaging was not obtained. The patient's urine toxicity was positive for benzodiazepines and THC. She can provide no history as she is intubated. Her was interviewed and notes that he did not think she has used any marijuana for several months. He also notes that she does not drink. He notes that she is never made a clear-cut suicide attempt in the past. He also notes that he does not believe that she would want invasive procedures, mechanical ventilation, or CPR or defibrillation if she had an arrest. . Hospital Course Herlinda Cassidy is a 71 year old woman with a PMH of depression with recent expression of suicidal ideation and significantly increased stress in her life recently as outlined in the subjective portion of this note. The patient is now awake and alert, and has admitted to taking Temazepam as the sole agent in her overdose, this will prove problematic for her as she has a longstanding history of insomnia for which Temazepam has proven to be the only effective medicine. I have some remaining concerns, namely that one of the primary stressors that precipitating this event was financial stress, which will only be exacerbated by bills incurred by this hospital stay; in addition she will need to establish an effective sleep strategy in the absence of Temazepam which she has been reliant upon in the past. 1. Acute encephalopathy, uncertain etiology. POA. Acute. Resolved -Patient is extubated and appears fully awake and alert -Head CT negative -Patient found with several empty pill bottles, admitted to Temazepam intentional overdose 2. Overdose of benzodiazepines, unconfirmed. POA. acute. Active -used a low dose of Temazepam to avoid withdrawal, DC upon discharge 3. Insomnia, present on admission, acute on chronic. Active -Will attempt to substitute Seroquel in place of Temazepam this evening, this was moderately effectively in achieving adequate sleep, will continue upon DC at 12.5 mg -Resume Home Melatonin -Resume home Mirtazapine 4. Diabetes Mellitus 2, POA. chronic. Active -34U Qam home Lantus dosing, continued at 20U due to decreased PO intake compared to baseline, resume prior insulin protocol upon discharge -Correctional NPH medium dose algorithm -A1c 6.8 -Resume home Metformin 5. Essential hypertension, POA.Chronic. Active -home Lisinopril -home Amlodipine 6. Possible UTI, POA, acute. Active -Uncertain if this is simple pyuria or lana infection as patient cannot answer dysuria questions -Ceftriaxone 2g Q24 for broad coverage, in the absence of any urinary symptoms or lab indicators of infection the we will not continue antibiotics upon discharge -Urine culture preliminary results indicate Yeast, likely Suze, possibly colonization or spurious reading, withheld anti-fungals -Low threshold to DC antibiotics given negative cultures and uncertain symptoms 7. History of inflammatory bowel disease, POA, chronic. Active -Resumed home Lialda Exam Vital Signs (Last) Date Time Temp Pulse Resp B/P Pulse Ox O2 Delivery O2 Flow Rate FiO2 07/23/16 08:22 36.7 65 19 151/67 97 Room Air 07/22/16 04:09 2.00 07/21/16 14:13 28 Exam Gen: A/O x3 pleasant cooperative woman in NAD Neck: Supple, non tender, no JVD, Full ROM HEENT: PERRL, EOMI, no scleral icterus, no conjunctival pallor CV: RRR no murmurs rubs or gallops Resp: Lungs CTA BL, no wheezing rales or rhonchi Abd: Soft, non-tender, no organomegaly, no rebound or guarding Extr: No clubbing cyanosis or edema Neuro: CN 2-12 grossly intact, no focal neurologic deficit Psych: Pleasant and appropriate mood and affect. Anxiety about insomnia for which Temazepam has been the only effective agent for her Test 07/18/16 10:40 07/18/16 11:18 07/18/16 12:23 07/18/16 12:35 Hemoglobin A1c 6.8% (4.8-5.6) Salicylates Level < 3.0ug/mL (30-250) Acetaminophen Level < 15.0ug/mL Rx (10-25) Alcohols < 10mg/dL (0-10) Hold Urine Received (Received) Urine Color Yellow (YELLOW) Urine Appearance Cloudy (CLEAR,HAZY) Urine pH 5.0 (5.0-8.0) Urine Specific [place] 1.019 (1.003-1.035) Urine Protein Negativemg/dL (NEG,TRACE) Urine Glucose (UA) Negativemg/dL (NEGATIVE) Urine Ketones Negativemg/dL (NEGATIVE) Urine Occult Blood Negative (NEGATIVE) Urine Nitrite Negative (NEGATIVE) Urine Bilirubin Negative (NEGATIVE) Urine Urobilinogen Normalmg/dL (NORMAL) Urine Leukocyte Esterase Moderate (NEGATIVE) Urine RBC 0-2/hpf (0-2) Urine WBC >50/hpf (0-5) Urine Epithelial Cells Few/hpf (NONE-MOD) Urine Crystals None seen (NONE SEEN) Urine Bacteria Few/hpf (NONE-FEW) Urine Hyaline Casts None/lpf (NONE) Urine Granular Casts None seen (NONE SEEN) Urine Waxy Casts None seen (NONE SEEN) Urine Red Blood Cell Casts None seen (NONE SEEN) Urine White Blood Cell Casts None seen (NONE SEEN) Urine Mucus None seen (None Seen) Urine Trichomonas None seen (NONE SEEN) Urine Yeast Moderate (NONE SEEN) Urinalysis Comment None Urine Culture Reflexed Indicated Lactic Acid Level 1.9mmol/L (0.4-2.0) Test 07/21/16 03:00 07/22/16 03:25 07/23/16 03:29 Procalcitonin 0.03ng/mL (0.00-0.08) Prothrombin Time 10.4sec (8.1-12.5) Prothromb Time International Ratio 0.97ratio Phosphorus Level 5.1mg/dL (2.5-4.9) Magnesium Level 1.6mg/dL (1.6-2.6) Total Bilirubin 0.4mg/dL (0.0-1.2) Aspartate Amino Transf (AST/SGOT) 18U/L (0-50) Alanine Aminotransferase (ALT/SGPT) 11U/L (0-32) Alkaline Phosphatase 81U/L (25-165) Total Protein 6.7g/dL (6.4-8.4) Albumin 3.1g/dL (3.4-5.0) Prealbumin 17mg/dL (20-40) White Blood Count 8.5th/mm3 (3.8-10.1) Red Blood Count 4.21mil/mm3 (3.90-5.20) Hemoglobin 11.6g/dL (12.0-15.6) Hematocrit 35.5% (35.0-46.0) Mean Corpuscular Volume 84.3fL (81-100) Mean Corpuscular Hemoglobin 27.6pg (27.0-35.0) Mean Corpuscular Hemoglobin Concent 32.7% (32.0-37.0) Red Cell Distribution Width 14.4% (12.3-15.4) Platelet Count 296bil/L (150-400) Neutrophils (%) (Auto) 47.3% (40-74) Lymphocytes (%) (Auto) 35.1% (14-46) Monocytes (%) (Auto) 10.4% (4-12) Eosinophils (%) (Auto) 6.3% (0-5) Basophils (%) (Auto) 0.7% (0-3) Sodium Level 137mEq/L (134-144) Potassium Level 4.0mEq/L (3.5-5.2) Chloride Level 98mEq/L (97-108) Carbon Dioxide Level 24mmol/L (18-29) Blood Urea Nitrogen 22mg/dL (8-27) Creatinine 0.86mg/dL (0.57-1.00) Estimat Glomerular Filtration Rate 93mL/min (>59) Glucose Level 189mg/dL (60-99) Calcium Level 9.6mg/dL (8.5-10.1) Microbiology Results Urine with preliminary growth of Yeast Discharge Medications Discharge Medications Allopurinol (Allopurinol) 300 Mg Tablet 300 MG PO DAILY (Reported) Amlodipine (Amlodipine) 5 Mg Tablet 5 MG PO DAILY (Reported) Atorvastatin (Lipitor) 20 Mg Tablet 20 MG PO HS (Reported) Insulin Glargine (Lantus U100 Solostar Insulin Pen) 100 Unit/1 Ml Insuln.pen 34 UNIT SUBQ QAM (Reported) Lisinopril (Lisinopril) 20 Mg Tablet 20 MG PO DAILY (Reported) Hold for systolic less than 110 Melatonin (Melatonin) 3 Mg Tab.rapdis 3 MG PO HS (Reported) Mesalamine (Lialda) 1.2 Gm Tablet.dr 2.4 GM PO QAM (Reported) Metformin ER (Metformin ER) 1,000 Mg Tablet 1,000 MG PO BIDWM (Reported) Quetiapine Fumarate (Quetiapine Fumarate) 25 Mg Tablet 12.5 MG PO HS Prescribed by: FLO GARCIA, DO As needed Albuterol HFA (Proair HFA) 8.5 Gm Hfa.aer.ad 2 PUFFS INHALATION Q6H PRN PRN For Shortness of Breath (Reported) Mirtazapine (Mirtazapine) 15 Mg Tablet 15 MG PO HS PRN PRN Insomnia (Reported) Followup Plan Disposition: Home with outpatient mental health follow up Follow-up plan Follow up with your Primary care provider Dr. Loza. Please establish care with a counselor, your social work manager recommends [facility], I have worked closely with them in the past and I think they provide excellent care. Discharge Diet: No restrictions Discharge Activity: No restrictions Patient Instructions Please take all medications as directed. Follow up with a Mental health provider for further discussion about stress reduction and coping skills. Follow-up Provider: Horace Hall MD Follow-up with PCP in: 1 week Provider: Maurizio Owens MD Follow-up in: 4 weeks (Or other [facility] provider) Time spent Greater than 30 minutes was spent in preparation of discharge with greater than 50% of that time dedicated to patient counseling and coordination of care. . Attending Statement The patient was seen and examined together with Dr. Garcia on 07/23/2016 and I agree with the history, exam and plan as outlined in the note above. . copies to: Horace Hall MD, David E DO Jul 23, 2016 09:57 Roddy Bowman MD Jul 23, 2016 15:18
[2016-07-23] MEDS: DEXMEDETOMIDINE IV SCH (10:13)
[2016-07-23] MEDS: SODIUM CHLORIDE 0.9% IV SCH (10:13)
[2016-07-23 11:44] VITALS: BP 154/81; PULSE 88; RESP 16; O2SAT 96
--- NOTE | 2016-07-23 12:52 | NUR ---
Social Work: Discharge D: Pt discussed in am rounds. Pt is medically stable for discharge home as she does not meet criteria for inpatient psychiatric hospitalization. SENIOR FACILITIES MANAGER has attempted to secure the patient an outpatient counseling appointment at [facility] and [facility] as well as with several individual Medicare providers in the area. All outpatient providers have stated that they are not currently accepting new patients due to high volume of caseload. Pt was previously seen by PCP Ivon Gonsalves at [facility], SENIOR FACILITIES MANAGER met with patient at bedside to discuss safety plan. Pt is willing to see Dr. Gonsalves at discharge for a referral within [facility]'s behavioral health and psychiatric unit- pt would have to pay privately but is willing to do this and utilize their sliding fee scale. Pt is also willing to engage with the [facility] CPIT team for additional support and help gaining access to the necessary mental health resources. Pt provided with 13/09 crisis telephone number. Current Mental Status: Pt is a/o x4, cooperative and continues to deny current suicidal, homicidal ideation and/or a/v hallucinations. Pt expressing remorse over her actions and expressing goal oriented conversation with SENIOR FACILITIES MANAGER> Pt states that she slept well overnight with the addition of seroquel and does not feel any more anxiety now that she knows she will have a sleep aid at discharge. She states she is ready to go home and is hopeful for her future knowing that her son and the people in her life that have caused her stress will be gone. t/c to [facility] to arrange for PCP appointment for patient, specifically for referral to psychiatry. Pt has an appointment on TuesdayJuly 26 at 0900 with an 0845 check-in. Pt is aware. t/c to [facility] to dispatch CPIT team for patient. Patient information provided to [facility] for CPIT referral. They are aware pt was hospitalized in December 2015 and was unable to get established with the necessary outpatient providers. They will follow up with her to continue to provide supportive outpatient resources and assistance. A: Pt who lives at home with her spouse. P: Recommendations discussed with MD who agrees with this plan. Pt to discharge home today to follow up with Dr. Gonsalves on Tuesday at 0900 for a referral to [facility] Psychiatrist. [facility] CPIT team to also assist pt in gaining access to necessary outpatient providers. SENIOR FACILITIES MANAGER to meet with pt and spouse prior to discharge today to confirm safety plan when spouse arrives at bedside. OLGA Dennison Addendum: 07/23/16 at 1508 by GUILLERMINA GALLARDO SS OLGA met with pt's spouse to confirm safety plan. Pt's spouse states that he feels confident with pt's discharge plan to follow up with Dr. Gonsalves for Psych referral to [facility]. He and the patient discussed him taking control of her medications until she can get established with outpatient counseling. Pt is agreeable to this. Pt's spouse and pt understand that they are to return to the ER or call the 13/09 crisis hotline if the pt is not complying with the safety plan and/or begins to have thoughts of suicide. Pt and spouse deny any other needs at this time and will work closely with the CPIT team to ensure pt receives necessary mental health counseling.
--- NOTE | 2016-07-23 18:10 | NUR ---
Discharge Patient was discharger home in stable condition this afternoon. Patient refused 1430 finger stick for glucose level. Patient stated that she will take her reading at home. Patient appeared to be anxious to go home. Patient asked to have her IV removed and to be discharge even before her arrived. Patient was asked to wait for her so he can take part and be able to understand aspects of her discharge regarding her diagnosis, medications old and new times to administer and dosing, follow up with mental health and PCP, S/S of suicidal behavior. Initially patient appeared to be crossed with the idea of having to wait. Patient went to her room and stated this makes me angry. Patient accepted after a shot while and stated that she will wait. Verbal and written discharge instructions were given with both the patient and her present in the room. Assembler Final was also able to provide information to both prior to discharge. Both the patient and her verbalized understanding of discharge home instructions. Patients verbally agreed to take responsibility for daily medications dosing and administration to decrease her risk of mistakenly or intentionally overdose. Patient appeared to be accepting of this decision.
== END 2016-07-23 15:56 | disposition home or self-care (01) | DRG 917 ==
LOC: SED 10:45 → CCU 12:00 → PCC 07-21 17:32
PROVIDERS: ADMIT Hospitalist; ATTEND Hospitalist
PROC: 5A1945Z Respiratory Ventilation, 24-96 Consecutive Hours (ICD-10-PCS; principal; 2016-07-18)
PROC: 4A033R1 Measurement of Arterial Saturation, Peripheral, Percutaneous Approach (ICD-10-PCS; 2016-07-18)
DX: T42.4X2A Poisoning by benzodiazepines, intentional self-harm, initial encounter (principal); J96.00 Acute respiratory failure, unspecified whether with hypoxia or hypercapnia; G92 Toxic encephalopathy; N39.0 Urinary tract infection, site not specified; R55 Syncope and collapse; Y92.009 Unspecified place in unspecified non-institutional (private) residence as the place of occurrence of the external cause; E11.9 Type 2 diabetes mellitus without complications; I10 Essential (primary) hypertension; Z87.891 Personal history of nicotine dependence; E87.8 Other disorders of electrolyte and fluid balance, not elsewhere classified; F41.9 Anxiety disorder, unspecified; Z66 Do not resuscitate; G47.00 Insomnia, unspecified; K63.89 Other specified diseases of intestine; Z79.84 Long term (current) use of oral hypoglycemic drugs